=== PATIENT | female | born 1945 | race Caucasian/White ===

== ENCOUNTER 2019-09-16 16:39 | Observation (INO) | payer MEDICARE, OTHER, SELFPAY ==
[2019-09-16 16:50] VITALS: BMI 37.2
[2019-09-16 16:52] VITALS: BP 233/108; PULSE 82; RESP 18; TEMP 36.8; O2SAT 99
--- NOTE | 2019-09-16 17:09 | CTR_ITS ---
PROCEDURE INFORMATION: Exam: CT Head Without Contrast Exam date and time: 09/16/2019 5:20 PM Age: 74 years old Clinical indication: Dizziness and speech disturbance and weakness, extremity; Additional info: Symptoms of acute stroke TECHNIQUE: Imaging protocol: Computed tomography of the head without contrast. Total DLP: 923.39 mGy-cm Radiation optimization: All CT scans at this facility use at least one of these dose optimization techniques: automated exposure control; mA and/or kV adjustment per patient size (includes targeted exams where dose is matched to clinical indication); or iterative reconstruction. COMPARISON: CT head wo con* [id number] 03/26/2019 3:29 PM FINDINGS: Brain: There is mild cortical atrophy. There is no intracranial mass, hemorrhage or edema. Mild low-density changes are present in white matter regions in keeping with nonspecific small vessel chronic ischemic change. Midline shift: There is no shift of midline structures. Ventricles: Normal. No ventriculomegaly. Bones/joints: Unremarkable. No acute fracture. Sinuses: Visualized sinuses are unremarkable. No fluid levels. Mastoid air cells: Visualized mastoid air cells are well aerated. Soft tissues: Unremarkable. Vasculature: There are atherosclerotic changes in the cavernous carotid arteries on both sides. CT/CT head wo con* [id number] IMPRESSION: No acute intracranial finding. Radiation Dose CTDIVOL = (mGy): DLP = 923.39 (mGy-cm)
--- NOTE | 2019-09-16 17:09 | ECG_ITS ---
Measurements Intervals [place] Rate: 77 P: 74 MI: 205 QRS: -50 QRSD: 141 T: 56 QT: 400 QTc: 454 SINUS RHYTHM INTRAVENTRICULAR CONDUCTION DELAY [130+ ms QRS DURATION] POSSIBLE LATERAL MYOCARDIAL INFARCTION , PROBABLY OLD [30 ms Q WAVE IN I/ I/aVL/V5/V6] Compared to ECG 03/26/2019 15:11:41 Intraventricular conduction delay now present Myocardial infarct finding now present Left-axis deviation no longer present Left ventricular hypertrophy no longer present Electronically Signed On 09-17-2019 10:54:37 CDT by Breana Smiley M.D. [email or web address]
--- NOTE | 2019-09-16 17:12 | W.ED.NEUROSD ---
HPI - Neuro Symptoms/Deficit General: Chief Complaint: Neuro Symptoms/Deficit Stated Complaint: dizzy Time Seen by Provider: 09/16/19 16:53 Source: patient Mode of arrival: ambulatory Limitations: no limitations History of Present Illness: HPI Narrative: 75-year-old female patient who presents to the emergency department with complaints of dizziness, right hand tingling, and right side of her face numb. Her symptoms have been going on intermittently for 3 days. Each time it only lasts a few minutes at a time. She is currently asymptomatic. No weakness on one side of the body. No gait difficulty. No chest pain or shortness of breath. Onset (ago): day(s) (3) Location: other History of same: No Quality: numb Context: sudden onset Associated symptoms: Deny chest pain, cough, fevers/chills, headache(s), loss of appetite, nausea, seizures or short of breath Treatments Prior to Arrival: none Review of Systems General: Reports: 10 or more systems reviewed and unremarkable except in HPI and below Const: Denies: fever, chills or body aches Eyes: Denies: change in vision or blurry vision ENMT: Denies: throat pain, enlarged tonsils, painful swallowing, hoarseness, mouth pain or swelling of lips/tongue Card: Denies: chest pain Resp: Denies: shortness of breath, productive cough or non-productive cough GI: Denies: nausea : Denies: flank pain, difficulty urinating, painful urination, urinary frequency, urinary urgency or urinary hesitancy Musc: Denies: neck pain, back pain or extremity swelling Skin/Breast: Denies: rash, itching or redness Neuro: Denies: headache Endo: Denies: excessive urination, excessive thirst or tired all the time [facility] ED PFSH: Social History Smoking and tobacco status: never smoked Alcohol intake: never Current occupational status: retired NIH stroke score NIHSS: Level Of Consciousness - 1a: 0 Level Of Consciousness Questions - 1b: Both Correct Level Of Consciousness Commands - 1c: Both Correct Best Gaze - 2: Normal Visual Villar - 3: No Visual Loss Facial Palsy - 4: Normal Motor Arm Right - 5: No Drift Motor Arm Left - 5: No Drift Motor Leg Right - 6: No Drift Motor Leg Left - 6: No Drift Limb Ataxia - 7: Absent Sensory - 8: Normal Best Language - 9: No Aphasia Dysarthia - 10: Normal Extinction And Inattention - 11: 0 (0) Score: Total Score: 0 Physical Exam Const: COMMON NORMALS: no apparent distress, average body habitus, oriented x3, no limitations, healthy appearing, alert and well nourished HENMT: COMMON NORMALS: normocephalic, head/scalp atraumatic and moist oral mucous membranes HEAD & SCALP: normocephalic and atraumatic Eye: COMMON NORMALS: PERRL, EOMs intact bilaterally, conjunctivae normal and no scleral icterus CONJUNCTIVA: Yes conjunctivae normal PUPIL: Yes PERRL Neck/C-Spine: COMMON NORMALS: full ROM, supple, no meningeal signs, no JVD and no carotid bruits Chest: COMMONS NORMALS: inspection of chest normal and palpation of chest normal Resp: COMMON NORMALS: normal respiratory effort, no retractions, no use of accessory muscles, clear to auscultation bilaterally and percussion normal AUSCULTATION: clear to auscultation bilaterally PERCUSSION: percussion normal Cardio: COMMON NORMALS: no JVD, regular rate, regular rhythm, S1 normal heart sound, S2 normal heart sound, no gallops, no clicks, no murmurs, no rub and peripheral pulses 2+ throughout RATE: regular rate RHYTHM: regular rhythm HEART SOUNDS: S1 normal and S2 normal PERIPHERAL PULSES: pulses 2+ throughout GI: COMMON NORMALS: normal to inspection, nondistended, normoactive bowel sounds, soft to palpation, non-tender, no hepatosplenomegaly, no masses and no bruits PALPATION: Yes soft and Yes no hepatosplenomegaly : COMMON NORMALS: Yes no CVA tenderness BLADDER/KIDNEY EXAM: Yes no CVA tenderness Back/Pelvis: COMMON NORMALS: no CVA tenderness Extremity: COMMON NORMALS: normal to inspection, full ROM, normal capillary refill, no calf tenderness and no pedal edema Neuro: COMMON NORMALS: oriented x3 SENSORIUM/ORIENTATION: Yes alert MENINGEAL SIGNS: Yes no meningeal signs Skin: COMMON NORMALS: no rashes or lesions noted, no wounds, skin turgor normal, no jaundice, no petechiae and no mottling GENERAL SKIN EXAM: no rashes or lesions noted and turgor normal Course Consultations: Consultation #1: Dr. Gutierrez, hospitalist. He kindly accepted the patient to his service. Time: 20:00 Vital Signs: Vital signs: Vital Signs Temperature 98.3 F 09/16/19 16:52 Pulse Rate 70 09/16/19 21:03 Respiratory Rate 14 09/16/19 21:03 Blood Pressure 190/99 09/16/19 21:03 Pulse Oximetry 98 09/16/19 21:03 MDM - Neuro Symptoms/Deficit MDM Narrative: Medical decision making narrative: 74-year-old female patient who presents with symptoms of dizziness, right hand numbness as well as right facial numbness. NIH score is 0 though. Evaluation in the ED was unremarkable, however the patient felt uncomfortable being discharged home so she is admitted for stroke work-up. The patient had felt uncomfortable because she had had this in the past and she states when she was discharged home she had an episode of loss of consciousness as soon as she got home at that time. Medical Records: Attestation: I reviewed the patient's medical records. Lab Data: Labs: Lab Results 09/16/19 09/16/19 09/16/19 Range/Units 17:00 17:00 17:00 WBC 11.6 H (4.0-10.0) 10^3/ uL RBC 4.50 (4.1-5.3) 10^6/u L Hgb 9.6 L (11.5-15.3) g/dL Hct 32.8 L (37.0-47.0) % MCV 72.9 L (81-99) fL MCH 21.3 L (28.0-34.0) pg MCHC 29.3 L (30.0-36.0) g/dL RDW 17.8 H (12.1-15.1) % Plt Count 348 (130-400) 10^3/c mm MPV 8.7 (7.4-10.4) fL Neut % (Auto) 72.1 % Lymph % (Auto) 16.3 % Villalba % (Auto) 7.8 % Eos % (Auto) 2.8 % Baso % (Auto) 0.7 % Neut # (Auto) 8.4 H (1.8-7.7) 10^3/u L Lymph # (Auto) 1.9 (0.8-4.8) 10^3/u L Villalba # (Auto) 0.9 (0.2-0.9) 10^3/u L Eos # (Auto) 0.3 (0.0-0.8) 10^3/u L Baso # (Auto) 0.1 (0.0-0.1) 10^3/u L Nucleated RBC % (a uto) 0 % Nucleated RBCs # 0.0 /100WBC PT 13.20 (10.5-13.3) SECO NDS INR 0.98 (0.8-1.2) APTT 21.9 L (23.9-36.7) SECO NDS Sodium 134 L (136-145) mmol/L Potassium 4.3 (3.5-5.1) mmol/L Chloride 95 L (98-107) mmol/L Carbon Dioxide 24 (22-29) mmol/L Anion Gap 19.3 H (5-19) BUN 15 (8-23) mg/dL Creatinine 0.9 (0.5-0.9) mg/dL Glucose 158 H (65-115) mg/dL POC Glucose (70-110) mg/dL Calculated Osmolal ity 278 L (285-295) mOsm/k g Calcium 10.1 (8.5-10.5) mg/dL Total Bilirubin 0.2 (0.15-1.2) mg/dL AST 16 (0-32) U/L ALT 13 (0-33) U/L Alkaline Phosphata se 91 (35-105) IU/L Total Protein 7.6 (6.6-8.7) g/dL Albumin 4.3 (3.5-5.2) g/dL Globulin 3.3 (1.3-4.6) g/dL Urine Color (Yellow) Urine Appearance (CLEAR) Urine pH (5-7) Ur Specific Gravit y (1.005-1.030) Urine Protein (Negative) Urine Glucose (UA) (Normal) Urine Ketones (Negative) Urine Blood (Negative) Urine Nitrate (Negative) Urine Bilirubin (NEGATIVE) Urine Urobilinogen (Negative) mg/dL Ur Leukocyte Ivis ase (Negative) Urine Opiates Scre en (Negative) ng/mL Ur Barbiturates Sc reen (Negative) ng/mL Ur Phencyclidine S crn (Negative) ng/mL Ur Amphetamines Sc reen (Negative) ng/mL U Benzodiazepines Scrn (Negative) ng/mL Urine Cocaine Scre en (Negative) ng/mL U Marijuana (THC) Screen (Negative) ng/mL 09/16/19 09/16/19 09/16/19 Range/Units 17:39 19:58 19:58 WBC (4.0-10.0) 10^3/ uL RBC (4.1-5.3) 10^6/u L Hgb (11.5-15.3) g/dL Hct (37.0-47.0) % MCV (81-99) fL MCH (28.0-34.0) pg MCHC (30.0-36.0) g/dL RDW (12.1-15.1) % Plt Count (130-400) 10^3/c mm MPV (7.4-10.4) fL Neut % (Auto) % Lymph % (Auto) % Villalba % (Auto) % Eos % (Auto) % Baso % (Auto) % Neut # (Auto) (1.8-7.7) 10^3/u L Lymph # (Auto) (0.8-4.8) 10^3/u L Villalba # (Auto) (0.2-0.9) 10^3/u L Eos # (Auto) (0.0-0.8) 10^3/u L Baso # (Auto) (0.0-0.1) 10^3/u L Nucleated RBC % (a uto) % Nucleated RBCs # /100WBC PT (10.5-13.3) SECO NDS INR (0.8-1.2) APTT (23.9-36.7) SECO NDS Sodium (136-145) mmol/L Potassium (3.5-5.1) mmol/L Chloride (98-107) mmol/L Carbon Dioxide (22-29) mmol/L Anion Gap (5-19) BUN (8-23) mg/dL Creatinine (0.5-0.9) mg/dL Glucose (65-115) mg/dL POC Glucose 152 (70-110) mg/dL Calculated Osmolal ity (285-295) mOsm/k g Calcium (8.5-10.5) mg/dL Total Bilirubin (0.15-1.2) mg/dL AST (0-32) U/L ALT (0-33) U/L Alkaline Phosphata se (35-105) IU/L Total Protein (6.6-8.7) g/dL Albumin (3.5-5.2) g/dL Globulin (1.3-4.6) g/dL Urine Color Yellow (Yellow) Urine Appearance Clear (CLEAR) Urine pH 7 (5-7) Ur Specific Gravit y 1.005 (1.005-1.030) Urine Protein Neg (Negative) Urine Glucose (UA) Norm (Normal) Urine Ketones Negative (Negative) Urine Blood Neg (Negative) Urine Nitrate Negative (Negative) Urine Bilirubin Neg (NEGATIVE) Urine Urobilinogen Norm (Negative) mg/dL Ur Leukocyte Ivis ase Negative (Negative) Urine Opiates Scre en Negative (Negative) ng/mL Ur Barbiturates Sc reen Negative (Negative) ng/mL Ur Phencyclidine S crn Negative (Negative) ng/mL Ur Amphetamines Sc reen Negative (Negative) ng/mL U Benzodiazepines Scrn Negative (Negative) ng/mL Urine Cocaine Scre en Negative (Negative) ng/mL U Marijuana (THC) Screen Negative (Negative) ng/mL Imaging Data^: CT Head: Radiologist's impression: [place] [address] CT Scan Report Signed Patient: Desire Doll #: [id number] : 8Acct#:[id number] Age/Sex: 74 / FADM Date: 09/16/19 Loc: [facility]/Bed: Attending Dr: Ordering Provider/Ordering MD: Refugio Kidd MD, [facility] Date of Service: 09/16/19 Procedure(s): CT head wo con* 20006 Accession Number(s): [id number] Report Number: [id number] PROCEDURE INFORMATION: Exam: CT Head Without Contrast Exam date and time: 09/16/2019 5:20 PM Age: 74 years old Clinical indication: Dizziness and speech disturbance and weakness, extremity; Additional info: Symptoms of acute stroke TECHNIQUE: Imaging protocol: Computed tomography of the head without contrast. Total DLP: 923.39 mGy-cm Radiation optimization: All CT scans at this facility use at least one of these dose optimization techniques: automated exposure control; mA and/or kV adjustment per patient size (includes targeted exams where dose is matched to clinical indication); or iterative reconstruction. COMPARISON: CT head wo con* [id number] 03/26/2019 3:29 PM FINDINGS: Brain: There is mild cortical atrophy. There is no intracranial mass, hemorrhage or edema. Mild low-density changes are present in white matter regions in keeping with nonspecific small vessel chronic ischemic change. Midline shift: There is no shift of midline structures. Ventricles: Normal. No ventriculomegaly. Bones/joints: Unremarkable. No acute fracture. Sinuses: Visualized sinuses are unremarkable. No fluid levels. Mastoid air cells: Visualized mastoid air cells are well aerated. Soft tissues: Unremarkable. Vasculature: There are atherosclerotic changes in the cavernous carotid arteries on both sides. CT/CT head wo con* [id number] IMPRESSION: No acute intracranial finding. Radiation Dose CTDIVOL = (mGy): DLP = 923.39 (mGy-cm) Dictated By:Kevin Magana Signed By:Eneida Maganaigned Date/Time:09/16/191733 DD/ [address]: Radiologist's impression: [address] [address] [address] Scan Report Signed Patient: Desire Doll #: [id number] : [id number]#:[id number] Age/Sex: 74 / FADM Date: 09/16/19 Loc: [facility]/Bed: Attending Dr: Ordering Provider/Ordering MD: Refugio Kidd MD, [facility] Date of Service: 09/16/19 Procedure(s): CT angio headneck* [id number] Accession Number(s): [id number] Report Number: [id number] PROCEDURE INFORMATION: Exam: CT Angiography Head With Contrast Exam date and time: 09/16/2019 5:53 PM Age: 74 years old Clinical indication: Numbness and speech disturbance; Additional info: Stroke like symptoms. TECHNIQUE: Imaging protocol: Computed tomography angiography of the head with intravenous contrast. 3D rendering: MIP and/or 3D reconstructed images were created by the technologist. Total DLP: 2537.32 mGy-cm Radiation optimization: All CT scans at this facility use at least one of these dose optimization techniques: automated exposure control; mA and/or kV adjustment per patient size (includes targeted exams where dose is matched to clinical indication); or iterative reconstruction. Contrast material: OMNI 350; Contrast volume: 95 ml; Contrast route: IV; COMPARISON: CTA Head/Neck [id number] 03/26/2019 4:30 PM FINDINGS: Right internal carotid artery: There is atherosclerotic change in the cavernous portion of the right internal carotid artery with mild stenosis not significantly changed from previous. Right anterior cerebral artery: No occlusion or significant stenosis. No aneurysm. Right middle cerebral artery: No occlusion or significant stenosis. No aneurysm. Right posterior cerebral artery: No occlusion or significant stenosis. No aneurysm. Right vertebral artery: No occlusion or significant stenosis. No aneurysm. Left internal carotid artery: There is atherosclerotic change in the cavernous portion of the left internal carotid artery with mild stenosis not significantly changed from previous. Left anterior cerebral artery: No occlusion or significant stenosis. No aneurysm. Left middle cerebral artery: No occlusion or significant stenosis. No aneurysm. Left posterior cerebral artery: No occlusion or significant stenosis. No aneurysm. Left vertebral artery: No occlusion or significant stenosis. No aneurysm. Basilar artery: No occlusion or significant stenosis. No aneurysm. Other vasculature: There is some focal calcified plaque and moderate narrowing of the V4 vertebral artery not changed from the previous examination. IMPRESSION: Mild atherosclerotic changes as described. No acute intracranial finding PROCEDURE INFORMATION: Exam: CT Angiography Neck With Contrast Exam date and time: 09/16/2019 5:53 PM Age: 74 years old Clinical indication: Numbness and speech disturbance; Additional info: Stroke like symptoms. TECHNIQUE: Imaging protocol: Computed tomography angiography of the neck with intravenous contrast. 3D rendering: MIP and/or 3D reconstructed images were created by the technologist. Total DLP: 2537.32 mGy-cm Radiation optimization: All CT scans at this facility use at least one of these dose optimization techniques: automated exposure control; mA and/or kV adjustment per patient size (includes targeted exams where dose is matched to clinical indication); or iterative reconstruction. Contrast material: OMNI 350; Contrast volume: 95 ml; Contrast route: IV; COMPARISON: CTA Head/Neck [id number] 03/26/2019 4:30 PM FINDINGS: VASCULATURE: Right common carotid artery: There is some atherosclerotic plaque in the distal right common carotid artery not significantly changed from previous. Right internal carotid artery: There is atherosclerotic plaque in the proximal right internal carotid artery with approximately 35% stenosis as measured according to the NASCET criteria. Right external carotid artery: No occlusion or stenosis of the origin. Right vertebral artery: No stenosis. No dissection or occlusion. Left common carotid artery: No stenosis. No dissection or occlusion. Left internal carotid artery: There is mild atherosclerotic plaque in the proximal left internal carotid artery with no significant stenosis according to the NASCET criteria. Left external carotid artery: No occlusion or stenosis of the origin. Left vertebral artery: No stenosis. No dissection or occlusion. Subclavian arteries: There is an aberrant right subclavian artery. NECK: Bones/joints: There are mild degenerative changes in the cervical spine. Soft tissues: Normal. No significant soft tissue swelling. CT/CT angio headneck* [id number] IMPRESSION: 1. Mild carotid starter E stenosis not significantly changed from 03/26/2019. 2. No acute finding REFERENCES: NASCET CRITERIA. The degree of internal carotid artery stenosis is based on NASCET criteria. Normal is no stenosis. Mild is less than 50% stenosis. Moderate is 50-69% stenosis. Severe is 70% to 99% stenosis. Total occlusion is no detectable patent lumen. Radiation Dose CTDIVOL = (mGy): DLP = 2537.32~2537.32 (mGy-cm) Dictated By:Kevin Magana Signed By:Eneida Maganaigned Date/Time:09/16/19 1839 EKG Data^: EKG 1: Attestation: I personally reviewed and interpreted this EKG as follows: EKG interpretation date: 09/16/19 EKG interpretation time: 17:51 Prior EKG tracings: not available for review Interpretation: Normal sinus rhythm. Heart rate 77 bpm. Intraventricular conduction delay. No ST changes. Discharge Plan Discharge Patient Disposition: Placed in Observation Admit Provider: Vincent Gutierrez Clinical Impression: Transient cerebral ischemia Condition: Stable Interventions: ED Discharge Assessment Last Done: 09/16/19 21:01 Discharge Date/Time: 09/16/19 21:03 Coding Level of Care Code ED [facility] for [facility] Fwd Exam Comprehensive
[2019-09-16 17:34] LABS: Basophils # 0.1 10^3/uL (0.0-0.1); Basophils % 0.7 %; Eosinophils # 0.3 10^3/uL (0.0-0.8); Eosinophils % 2.8 %; Hematocrit 32.8 % (37.0-47.0); Hemoglobin 9.6 g/dL (11.5-15.3); Lymphocytes # 1.9 10^3/uL (0.8-4.8); Lymphocytes % 16.3 %; Mean Corpuscular HGB Conc 29.3 g/dL (30.0-36.0); Mean Corpuscular Hemoglobin 21.3 pg (28.0-34.0); Mean Corpuscular Volume 72.9 fL (81-99); Mean Platelet Volume 8.7 fL (7.4-10.4); Monocytes # 0.9 10^3/uL (0.2-0.9); Monocytes % 7.8 %; Neutrophils # 8.4 10^3/uL (1.8-7.7); Neutrophils % 72.1 %; Nucleated Red Blood Cells % 0 %; Platelet Count 348 10^3/cmm (130-400); Red Cell Distribution Width 17.8 % (12.1-15.1); White Blood Count 11.6 10^3/uL (4.0-10.0)
[2019-09-16 17:41] LABS: INR 0.98 (0.8-1.2); Partial Thromboplastin Time 21.9 SECONDS (23.9-36.7)
[2019-09-16 17:42] LABS: Alanine Aminotransferase 13 U/L (0-33); Albumin Level 4.3 g/dL (3.5-5.2); Alkaline Phosphatase 91 IU/L (35-105); Anion Gap 19.3 (5-19); Aspartate Amino Transferase 16 U/L (0-32); Blood Urea Nitrogen 15 mg/dL (8-23); Calcium 10.1 mg/dL (8.5-10.5); Carbon Dioxide 24 mmol/L (22-29); Chloride 95 mmol/L (98-107); Globulin 3.3 g/dL (1.3-4.6); Glucose 158 mg/dL (65-115); Osmolality Calculated 278 mOsm/kg (285-295); Potassium 4.3 mmol/L (3.5-5.1); Sodium 134 mmol/L (136-145); Total Bilirubin 0.2 mg/dL (0.15-1.2); Total Protein 7.6 g/dL (6.6-8.7)
[2019-09-16 17:48] VITALS: BP 228/109; PULSE 78; RESP 14; O2SAT 99
--- NOTE | 2019-09-16 17:49 | CTR_ITS ---
PROCEDURE INFORMATION: Exam: CT Angiography Head With Contrast Exam date and time: 09/16/2019 5:53 PM Age: 74 years old Clinical indication: Numbness and speech disturbance; Additional info: Stroke like symptoms. TECHNIQUE: Imaging protocol: Computed tomography angiography of the head with intravenous contrast. 3D rendering: MIP and/or 3D reconstructed images were created by the technologist. Total DLP: 2537.32 mGy-cm Radiation optimization: All CT scans at this facility use at least one of these dose optimization techniques: automated exposure control; mA and/or kV adjustment per patient size (includes targeted exams where dose is matched to clinical indication); or iterative reconstruction. Contrast material: OMNI 350; Contrast volume: 95 ml; Contrast route: IV; COMPARISON: CTA Head/Neck [id number] 03/26/2019 4:30 PM FINDINGS: Right internal carotid artery: There is atherosclerotic change in the cavernous portion of the right internal carotid artery with mild stenosis not significantly changed from previous. Right anterior cerebral artery: No occlusion or significant stenosis. No aneurysm. Right middle cerebral artery: No occlusion or significant stenosis. No aneurysm. Right posterior cerebral artery: No occlusion or significant stenosis. No aneurysm. Right vertebral artery: No occlusion or significant stenosis. No aneurysm. Left internal carotid artery: There is atherosclerotic change in the cavernous portion of the left internal carotid artery with mild stenosis not significantly changed from previous. Left anterior cerebral artery: No occlusion or significant stenosis. No aneurysm. Left middle cerebral artery: No occlusion or significant stenosis. No aneurysm. Left posterior cerebral artery: No occlusion or significant stenosis. No aneurysm. Left vertebral artery: No occlusion or significant stenosis. No aneurysm. Basilar artery: No occlusion or significant stenosis. No aneurysm. Other vasculature: There is some focal calcified plaque and moderate narrowing of the V4 vertebral artery not changed from the previous examination. IMPRESSION: Mild atherosclerotic changes as described. No acute intracranial finding PROCEDURE INFORMATION: Exam: CT Angiography Neck With Contrast Exam date and time: 09/16/2019 5:53 PM Age: 74 years old Clinical indication: Numbness and speech disturbance; Additional info: Stroke like symptoms. TECHNIQUE: Imaging protocol: Computed tomography angiography of the neck with intravenous contrast. 3D rendering: MIP and/or 3D reconstructed images were created by the technologist. Total DLP: 2537.32 mGy-cm Radiation optimization: All CT scans at this facility use at least one of these dose optimization techniques: automated exposure control; mA and/or kV adjustment per patient size (includes targeted exams where dose is matched to clinical indication); or iterative reconstruction. Contrast material: OMNI 350; Contrast volume: 95 ml; Contrast route: IV; COMPARISON: CTA Head/Neck [id number] 03/26/2019 4:30 PM FINDINGS: VASCULATURE: Right common carotid artery: There is some atherosclerotic plaque in the distal right common carotid artery not significantly changed from previous. Right internal carotid artery: There is atherosclerotic plaque in the proximal right internal carotid artery with approximately 35% stenosis as measured according to the NASCET criteria. Right external carotid artery: No occlusion or stenosis of the origin. Right vertebral artery: No stenosis. No dissection or occlusion. Left common carotid artery: No stenosis. No dissection or occlusion. Left internal carotid artery: There is mild atherosclerotic plaque in the proximal left internal carotid artery with no significant stenosis according to the NASCET criteria. Left external carotid artery: No occlusion or stenosis of the origin. Left vertebral artery: No stenosis. No dissection or occlusion. Subclavian arteries: There is an aberrant right subclavian artery. NECK: Bones/joints: There are mild degenerative changes in the cervical spine. Soft tissues: Normal. No significant soft tissue swelling. CT/CT angio headneck* [id number] IMPRESSION: 1. Mild carotid starter E stenosis not significantly changed from 03/26/2019. 2. No acute finding REFERENCES: NASCET CRITERIA. The degree of internal carotid artery stenosis is based on NASCET criteria. Normal is no stenosis. Mild is less than 50% stenosis. Moderate is 50-69% stenosis. Severe is 70% to 99% stenosis. Total occlusion is no detectable patent lumen. Radiation Dose CTDIVOL = (mGy): DLP = 2537.32~2537.32 (mGy-cm)
[2019-09-16 17:53] LABS: Glucose Point of Care 152 mg/dL (70-110)
[2019-09-16] MEDS: iohexol 350 mg/mL 100 mL Btl IV (18:00)
[2019-09-16 19:11] VITALS: BP 219/116; PULSE 81; RESP 16; O2SAT 98
[2019-09-16 20:07] VITALS: BP 218/108; PULSE 90; RESP 14; O2SAT 98
[2019-09-16 20:26] LABS: Add Urine Microscopic? NO
[2019-09-16 20:30] LABS: Specific Gravity, Urine 1.005 (1.005-1.030); Urine Appearance Clear (CLEAR); Urine Color Yellow (Yellow); pH Urine 7 (5-7)
[2019-09-16 20:31] LABS: Bilirubin Urine Neg (NEGATIVE); Blood Urine Neg (Negative); Glucose Urine UA Norm (Normal); Ketones Urine Negative (Negative); Leukocyte Esterase Urine Negative (Negative); Nitrate Urine Negative (Negative); Protein Urine Neg (Negative); Urobilinogen Urine Norm (Negative)
[2019-09-16 20:37] LABS: Amphetamines Screen Urine Negative (Negative); Barbiturates Screen Urine Negative (Negative); Benzodiazepines Screen Urine Negative (Negative); Cocaine Screen Urine Negative (Negative); Opiate Screen Urine Negative (Negative); PCP Screen Urine Negative (Negative); THC Screen Urine Negative (Negative)
[2019-09-16 21:03] VITALS: BP 190/99; PULSE 70; RESP 14; O2SAT 98
[2019-09-16 21:21] VITALS: BP 168/89; PULSE 88; RESP 20; TEMP 36.5; O2SAT 98
--- NOTE | 2019-09-16 22:07 | P.HP_ITS ---
Providers/Chief Complaint Admitting Physician: Vincent Gutierrez MD Primary Care Provider: Lars Day Chief Complaint: dizzy History of Present Illness Desire Doll is a 74 year old female with a past medical history of hypertension, cua-iovzzoj-clxfqxnyn type 2 diabetes mellitus, hypothyroidism, chronic joint pain, gout who presents to the emergency room due to complaints of right hand numbness, right facial numbness, slurring of her speech. Patient states that 3 days ago she developed right hand numbness, right facial numbness, slurring of her speech, lasted a few minutes, she also had a dark spot in her visual field, symptoms abated, she continued to have some sort of dark spot in her visual field. Patient did not seek medical attention, she thought her symptoms would go away. However again this morning more than 12 hours ago, she had recurrence of her symptoms, right hand numbness, right facial numbness, slurring of her speech, lasting a few minutes, she did not seek medical attention right away. She only sought medical attention when she started feel lightheaded, dizzy, uneasy on her feet. Patient states that back in March 2019, she had similar symptoms of right hand numbness, right facial numbness, slurring of her speech, lasting a few minutes, no visual defects, felt lightheaded, dizzy at that time, she actually presented [facility] had a CT of the head which was unremarkable, CT of her neck which was unremarkable she was sent home. However when patient arrived home, she had episodes of syncope, lightheadedness, dizziness, so her took her to [facility], she stated that she spent 4 days there, she is not sure what the work-up revealed, was not discharged on statin, was not discharged on aspirin, was not discharged on a blood thinner. States that since then she has been doing fine, except the episode that she had this morning and 3 days ago. She denies chest pain, does have intermittent episodes of palpitations, does have lightheadedness and dizziness at times, no history of CAD, no history of stenting, no history of heart failure, no history of lung disease, no history of smoking, does have a history of hypertension, states that at times her systolic blood pressures have been in the 200s, has a history of type 2 diabetes, [id number], blood sugars in the 140s Patient denies hematuria, denies bloody stools, denies black stools, had a colonoscopy roughly 5 years ago which was unremarkable, denies abdominal pain, denies a family history of cancers, does use meloxicam for joint pain During my examination, patient was sent up to the general medical floors, her NIH stroke scale was 0, she was asymptomatic currently, systolic blood pressure 160, diastolic 89, pulse 88, EKG showed normal sinus rhythm, incomplete RBBB, work-up showed hemoglobin 9.6, patient does complain of a persistent dark spot in her visual field, but has significantly reduced, only minimal now. Review of Systems Const: Denies: fever, chills, fatigue or malaise Eyes: Reports: change in vision; Denies: blurry vision ENMT: Denies: nasal congestion Resp: Denies: shortness of breath, productive cough, non-productive cough or wheezing GI: Denies: abdominal pain, nausea, vomiting, vomiting blood, diarrhea, constipation, blood in stool or black tarry stool : Denies: flank pain, painful urination or urinary frequency Musc: Denies: neck pain or back pain Skin/Breast: Denies: rash Neuro: Reports: numbness in extremities and slurred speech; Denies: headache, weakness in extremities, changes in sensation, lack of coordination, difficulty walking, frequent falls, dizziness or vertigo Psych: Denies: anxiety or depression Endo: Denies: excessive urination or excessive thirst Medications/Allergies Home Medications Medication Instructions Recorded Confirmed Last Taken Type hydrochlorothiazide 90 mg PO DAILY 09/16/19 09/16/19 09/16/19 History ibuprofen [Advil] 200 mg PO Q6H PRN 09/16/19 09/16/19 Unknown History Allergies Allergy/AdvReac Type Severity Reaction Status Date / Time penicillin G Allergy algy-rash Verified 09/16/19 16:57 Additional Medication Information Additional Medication Information: Enalapril 20 mg once daily Labetalol 300 mg twice daily Levothyroxine 150 mcg once daily Metformin thousand milligrams once daily Januvia 100 mg daily Allopurinol 100 mg daily Hydrochlorothiazide 12.5 mg once daily Meloxicam 15 mg daily as needed yes PFSH Acute PFSH: Medical History (Updated 09/16/19 @ 22:17 by Vincent Gutierrez MD) DM2 (diabetes mellitus, type 2) Hypertension Hypothyroidism Social History Smoking and tobacco status: never smoked Alcohol intake: never Current occupational status: retired Vitals/I&O/Wt Last Vital Signs Temp 97.7 F 09/16/19 21:21 Pulse 88 09/16/19 21:21 Resp 20 H 09/16/19 21:21 BP 168/89 09/16/19 21:21 Pulse Ox 98 09/16/19 21:21 Weight last 48 hrs Weight 98.43 kg Physical Exam Const: COMMON NORMALS: no apparent distress and oriented x3 GENERAL APPEARANCE: cooperative and comfortable HENMT: COMMON NORMALS: normocephalic HEAD & SCALP: normocephalic Eye: COMMON NORMALS: PERRL and EOMs intact bilaterally GENERAL EYE: normal appearance of both eyes PUPIL: Yes PERRL Neck/C-Spine: COMMON NORMALS: full ROM, no lymphadenopathy, no JVD and thyroid normal THYROID: thyroid normal Lymph: LYMPHATIC: no lymphadenopathy noted Resp: COMMON NORMALS: normal respiratory effort, no retractions, no use of accessory muscles and clear to auscultation bilaterally AUSCULTATION: clear to auscultation bilaterally Cardio: COMMON NORMALS: no JVD, regular rate, regular rhythm, S1 normal heart sound, S2 normal heart sound, no gallops, no clicks and no murmurs RATE: regular rate RHYTHM: regular rhythm HEART SOUNDS: S1 normal and S2 normal GI: COMMON NORMALS: normal to inspection, nondistended, normoactive bowel soun ds, soft to palpation, non-tender and no hepatosplenomegaly PALPATION: Yes soft and Yes no hepatosplenomegaly Extremity: COMMON NORMALS: normal to inspection, full ROM and no pedal edema Neuro: COMMON NORMALS: oriented x3, CN's II-XII intact bilaterally, moves all extremities and no focal motor deficits Psych: COMMON NORMALS: mental status grossly normal, thought process normal and cooperative THOUGHT PROCESS: normal thought process Data : 09/16/19 17:00 09/16/19 17:00 A&P Assessment and plan (1) Transient cerebral ischemia: -NIH stroke scale 0 -Symptoms are right hand numbness, right facial numbness, slurring of her speech -Blood persists is a dark spot in her visual field, seems like a left visual field, only very minimal now -Patient has episodes of palpitations, lightheadedness, dizziness -EKG normal sinus rhythm, no acute ST-T wave changes -Does report systolic blood pressures in the 200s at times -Given information above, I am concerned that patient has having embolic events possibly related to atrial fibrillation Plan: - Admit to general medical floors -Neurochecks -Telemetry monitoring -Aspirin, statin -IV hydration -Monitor hemoglobin as starting antiplatelet agent and Lovenox -Carotid ultrasound ordered, cardiac echocardiogram ordered -Patient's dark spot in her visual field sounds like retinal artery occlusion, which is resolving, sounds like related to embolic event, if patient's symptoms persist beyond 24 hours consider consulting ophthalmology for examination -On discharge consider discharging patient on an event monitor, given concerns for embolic strokes related to atrial fibrillation Full code, Lovenox for DVT prophylaxis Status: Acute Qualifiers: Transient cerebral ischemia type: unspecified Qualified Code(s): G45.9 - Transient cerebral ischemic attack, unspecified (2) Obesity, Class II, BMI 35-39.9: Status: Acute (3) Primary osteoarthritis of right knee: Status: Acute (4) Microcytic anemia: -Hemoglobin 9.6 Plan: -Iron studies -Hemoccult stool -CT of the abdomen -Possibly patient symptoms could be related to meloxicam use, gastritis, gastric ulcers -Had a colonoscopy 5 years ago which was relatively unremarkable -Denies hematuria, black stools, bloody stools, vaginal bleeding Status: Acute (5) Hypertension: Continue hydrochlorothiazide 12.5 mg once daily, labetalol 300 mg twice daily, enalapril 20 mg once daily Status: Acute (6) DM2 (diabetes mellitus, type 2): Low-dose sliding scale Status: Acute (7) Hypothyroidism: Continue levothyroxine 150 mcg once daily Check hemoglobin A1c Status: Acute (8) Gout: Continue allopurinol Status: Acute Attestations Medical Necessity Statement*: Patient requires hospitalization, outpatient with observation, for transient ischemic attack Coding Level of Care Code Acute Client Technical Professional for [facility] Diagnoses Transient cerebral ischemia G45.9 Transient cerebral ischemia type: unspecified Obesity, Class II, BMI 35-39.9 E66.9 Primary osteoarthritis of right knee M17.11 Microcytic anemia D50.9 Hypertension I10 DM2 (diabetes mellitus, type 2) E11.9 Hypothyroidism E03.9 Gout M10.9
[2019-09-16 22:24] LABS: Glucose Point of Care 133 mg/dL (70-110)
[2019-09-16] MEDS: atorvastatin 40 mg Tablet 80 MG PO (23:10)
[2019-09-16] MEDS: aspirin 81 mg EC Tablet PO (23:10)
[2019-09-16] MEDS: enoxaparin 40 mg/0.4 mL Syringe SUBCUT (23:11)
[2019-09-16 23:30] LABS: Thyroid Stimulating Hormone 0.45 uIU/mL (0.27-4.20)
[2019-09-17] VITALS: BP 172/79; PULSE 74; RESP 20; TEMP 37; O2SAT 98
[2019-09-17 01:21] LABS: Ferritin 10 ng/mL (15-150); Iron 20 ug/dL (37-145); Percent Saturation 4.8 % (20-50); Total Iron Binding Capacity 409 mcg/dl; Unsaturated Iron Binding 389 ug/dL (112-347)
[2019-09-17 04:00] VITALS: BP 147/72; PULSE 71; RESP 20; TEMP 36.4; O2SAT 97
[2019-09-17 05:42] LABS: Basophils # 0.1 10^3/uL (0.0-0.1); Eosinophils # 0.4 10^3/uL (0.0-0.8); Hematocrit 29.6 % (37.0-47.0); Hemoglobin 8.9 g/dL (11.5-15.3); Lymphocytes % 19.4 %; Mean Corpuscular HGB Conc 30.1 g/dL (30.0-36.0); Mean Corpuscular Hemoglobin 21.5 pg (28.0-34.0); Mean Corpuscular Volume 71.5 fL (81-99); Mean Platelet Volume 8.5 fL (7.4-10.4); Monocytes # 1.2 10^3/uL (0.2-0.9); Neutrophils # 6.7 10^3/uL (1.8-7.7); Neutrophils % 64.3 %; Nucleated Red Blood Cells % 0 %; Platelet Count 322 10^3/cmm (130-400); Red Blood Count 4.14 10^6/uL (4.1-5.3); Red Cell Distribution Width 17.8 % (12.1-15.1); White Blood Count 10.4 10^3/uL (4.0-10.0)
[2019-09-17 05:56] LABS: Alanine Aminotransferase 11 U/L (0-33); Albumin Level 3.8 g/dL (3.5-5.2); Alkaline Phosphatase 79 IU/L (35-105); Anion Gap 16.8 (5-19); Aspartate Amino Transferase 13 U/L (0-32); Blood Urea Nitrogen 14 mg/dL (8-23); Carbon Dioxide 25 mmol/L (22-29); Chloride 98 mmol/L (98-107); Chol HDL Ratio 3.16 mg/dL (0.0-4.40); Cholesterol 161 mg/dL (0-200); Glucose 131 mg/dL (65-115); HDL Cholesterol 51 mg/dL (60-100); LDL Cholesterol Calculated 95 mg/dL (50-129); LDL HDL Ratio 1.86 RATIO (0.00-3.22); Magnesium 1.7 mg/dL (1.7-2.3); Osmolality Calculated 280 mOsm/kg (285-295); Phosphorus 3.9 mg/dL (2.5-4.5); Potassium 3.8 mmol/L (3.5-5.1); Sodium 136 mmol/L (136-145); Total Bilirubin 0.3 mg/dL (0.15-1.2); Total Protein 6.8 g/dL (6.6-8.7); Triglycerides 73 mg/dL (0-150)
[2019-09-17 06:07] LABS: Estmated Average Glucose 143; Hemoglobin A1C 6.6 % (4.0-6.0)
[2019-09-17 06:19] LABS: INR 1.04 (0.8-1.2)
[2019-09-17 06:33] LABS: Glucose Point of Care 132 mg/dL (70-110)
[2019-09-17 06:55] VITALS: BP 163/84; PULSE 68; RESP 18; TEMP 36.7; O2SAT 98
[2019-09-17] MEDS: allopurinol 100 mg Tablet PO (09:00)
[2019-09-17] MEDS: hydroCHLOROthiazide 25 mg Tablet 12.5 MG PO (09:00)
[2019-09-17] MEDS: levothyroxine 150 mcg Tablet PO (09:00)
[2019-09-17] MEDS: aspirin 81 mg EC Tablet PO (09:01)
[2019-09-17] MEDS: labetalol 200 mg Tablet 300 MG PO (09:01)
[2019-09-17 10:57] LABS: Glucose Point of Care 165 mg/dL (70-110)
[2019-09-17 11:32] VITALS: BP 185/96; PULSE 71; RESP 18; TEMP 36.8; O2SAT 98
--- NOTE | 2019-09-17 12:00 | USCV_ITS ---
Desire Doll Age: 74 Gender: F : 1945 Exam Date: 09/17/2019 13:55 Ordering Phys: Dung Berman MD Technologist: Raul Hodgson [place] [facility] [place]: HTN Aortic Velocity @ SMA (cm/s) 107 RIGHT KIDNEY LEFT KIDNEY Velocity (cm/s) Velocity (cm/s) Sys/Benites Sys/Benites Resistive Index Resistive Index 192.0 / 47.4 0.75 Proximal Renal Artery 76.3 / 15.9 0.79 95.4 / 16.8 0.82 Mid Renal Artery 60.4 / 17.3 0.71 77.1 / 21.0 0.73 Distal Renal Artery 69.7 / 10.0 0.86 62.4 / 16.8 0.73 Hilar 58.4 / 13.9 0.76 44.9 / 7.0 0.84 Upper Pole / 52.6 / 21.0 0.60 Mid Pole 51.1 / 12.6 0.75 56.1 / 12.6 0.77 Lower Pole 49.8 / 13.9 0.72 1.80 Renal Aortic Ratio 0.72 Accleration Index (cm/sec2) 1882.0 Hilar 1126.0 0 0 1148.0 Upper Pole 0 1229.0 Mid Pole 889.00 0 882.00 Lower Pole 768.00 117.1 Kidney Length (mm) 110.6 FINDINGS Limited evaluation of arteries. There is no evidence of hemodynamically significant right renal artery stenosis. There is no evidence of hemodynamically significant left renal artery stenosis. CONCLUSIONS There is no sonographic evidence of hemodynamically significant renal artery stenosis bilaterally. Slightly limited due to technical difficulties. Dr. Xochitl Hearn DO (Electronically Signed) Final Date: 17 September 2019 15:57 S
--- NOTE | 2019-09-17 12:18 | PC.CHAP ---
Pastoral Care Encounter/Spiritual Assessment Type of Contact [] Declined returned case inspector visit [] Patient/Family/Request visit [] Outpatient visit [] Follow-up visit [] Physician referral [] Code/Alert [x] Routine visit [] Staff referral [] Actively dying [] Patient sleeping [] Family support [] [] Out of room [] Palliative care [] [x] Receiving care in room [] Pre-surgical visit [] Trauma [] Long length of stay [] ICU visit [] Other: Relational/Emotional Strength [] Patient feels connected with others/family/visitors/staff [] Distress [] Loneliness/isolation [] Abandonment Spirituality of Patient [] Person of Supriya [] Attends Caodaism of their Supriya [] Believes in Prayer [] Reads Bible or Yarsanism materials [] There are Spiritual issues to be addressed Manager Qa Interventions [] Prayer [] Active listening [] Non-anxious presence [] Spiritual/emotional support [] Crisis/trauma care [] Spiritual counseling [] Bereavement support [] Provided bereavement packet [] Provided Bible/devotional materials [] Provided toy/stuffed animal, coloring book to patient or family member [] Provided Communion [] Anointing/[place] [] Salvation [x] Completed spiritual assessment [] Other: Impact on Illness or Injury [] Angry [] Fearful [] Anxious [] Often cries [] Exhaustion [] Unable to work [] Unable to attend orthodoxy [] Unable to walk/stand [] Unable to read [] Unable to drive [] Unable to eat/drink [] Unable to sleep [] Unable to be with family [] Patient intubated [] Other: Summary Patient busy in discussion with doctor. Time spent with patient
--- NOTE | 2019-09-17 14:30 | PM.DCS ---
Discharge Providers Date of Admission: 09/16/19 20:18 Date of Discharge: September 17, 2019 Attending Provider at Admission: Vincent Gutierrez MD Attending Provider at Discharge: Dung Berman MD Primary Care Provider: Lars Day Diagnoses at Discharge Discharge Diagnosis (1) Transient cerebral ischemia: Status: Acute Qualifiers: Transient cerebral ischemia type: unspecified Qualified Code(s): G45.9 - Transient cerebral ischemic attack, unspecified (2) Obesity, Class II, BMI 35-39.9: Status: Acute (3) Primary osteoarthritis of right knee: Status: Acute (4) Microcytic anemia: Status: Acute (5) Hypertension: Status: Acute (6) DM2 (diabetes mellitus, type 2): Status: Acute (7) Hypothyroidism: Status: Acute (8) Gout: Status: Acute Reason for Visit Reason for Visit: Reason For Visit: dizzy Hospital Course Discharge Summary: Desire Doll is a 74 year old female with a past medical history of hypertension, gjr-ipkwbep-bnbuwkdpc type 2 diabetes mellitus, hypothyroidism, chronic joint pain, gout who presents to the emergency room on 09/16/2019 due to complaints of right hand numbness, right facial numbness, slurring of her speech. Patient states that 3 days ago she developed right hand numbness, right facial numbness, slurring of her speech, lasted a few minutes, she also had a dark spot in her visual field, symptoms abated, she continued to have some sort of dark spot in her visual field. Patient did not seek medical attention, she thought her symptoms would go away. However again this morning more than 12 hours ago, she had recurrence of her symptoms, right hand numbness, right facial numbness, slurring of her speech, lasting a few minutes, she did not seek medical attention right away. She only sought medical attention when she started feel lightheaded, dizzy, uneasy on her feet. She had similar symptoms back in March 2019, of right hand numbness, right facial numbness, slurring of her speech, lasting a few minutes, no visual defects, felt lightheaded, dizzy at that time, she actually presented [facility] had a CT of the head which was unremarkable, CT of her neck which was unremarkable she was sent home. However when patient arrived home, she had episodes of syncope, lightheadedness, dizziness, so her took her to [facility], she stated that she spent 4 days there, she is not sure what the work-up revealed, was not discharged on statin, was not discharged on aspirin, was not discharged on a blood thinner. States that since then she has been doing fine, except the episode that she had this morning and 3 days ago. She denies chest pain, does have intermittent episodes of palpitations, does have lightheadedness and dizziness at times, no history of CAD, no history of stenting, no history of heart failure, no history of lung disease, no history of smoking, does have a history of hypertension, states that at times her systolic blood pressures have been in the 200s, has a history of type 2 diabetes, [id number], blood sugars in the 140s. She was admitted to the medicine floor for monitoring neurological status. CT head was done which is unremarkable while CTA head and neck showed Mild carotid started restenosis which had not changed since March 262018 along with mild atherosclerotic changes. Echocardiogram was done which showed EF of 60%, LVH and grade 1 diastolic dysfunction. Patient during hospitalization continue to have high blood pressure for which amlodipine was added. Because patient was already on 3 antihypertensives and continue to high high blood pressure renal Doppler was done which did not show evidence of hemodynamically significant renal artery stenosis bilaterally. Patient worked well with physical therapy and her black spots in the left eye had gone away as well. On telemetry patient continued to have sinus rhythm. Because of recurrent episodes of similar symptoms in last 6 months patient was advised and was set up for Holter monitoring to rule out paroxysmal A. fib, [facility] SONIA profile was sent to rule out vasculitis, aspirin, Plavix and statin was added to her home medication list and she was asked to continue taking her medications. For high blood pressure as stated above amlodipine was added and she was asked to maintain a blood pressure chart advised to follow-up with her primary care physician in 2 weeks with a blood pressure chart. 4 black spots in her visual field she was advised to follow-up with Dr. Zapien from ophthalmology to rule out retinal detachment, CRAO. Patient is been discharged in hemodynamically stable condition and asked stable neurological functions. Physical Exam Const: COMMON NORMALS: no apparent distress and oriented x3 GENERAL APPEARANCE: cooperative and comfortable HENMT: COMMON NORMALS: normocephalic HEAD & SCALP: normocephalic Eye: COMMON NORMALS: PERRL and EOMs intact bilaterally GENERAL EYE: normal appearance of both eyes PUPIL: Yes PERRL Neck/C-Spine: COMMON NORMALS: full ROM, no lymphadenopathy, no JVD and thyroid normal THYROID: thyroid normal Lymph: LYMPHATIC: no lymphadenopathy noted Resp: COMMON NORMALS: normal respiratory effort, no retractions, no use of accessory muscles and clear to auscultation bilaterally AUSCULTATION: clear to auscultation bilaterally Cardio: COMMON NORMALS: no JVD, regular rate, regular rhythm, S1 normal heart sound, S2 normal heart sound, no gallops, no clicks and no murmurs RATE: regular rate RHYTHM: regular rhythm HEART SOUNDS: S1 normal and S2 normal GI: COMMON NORMALS: normal to inspection, nondistended, normoactive bowel sounds, soft to palpation, non-tender and no hepatosplenomegaly PALPATION: Yes soft and Yes no hepatosplenomegaly Extremity: COMMON NORMALS: normal to inspection, full ROM and no pedal edema Neuro: COMMON NORMALS: oriented x3, CN's II-XII intact bilaterally, moves all extremities and no focal motor deficits Psych: COMMON NORMALS: mental status grossly normal, thought process normal and cooperative THOUGHT PROCESS: normal thought process Discharge Data Data Completed and Pending: Completed Studies During Hospitalization Category Date Time Status CT abdomen pelvis wo con [id number] Rout ine Cat Scan 09/17/19 22:[address] angio headneck * [id number] Urge nt Cat Scan 09/16/19 17:[address] head wo con* [id number] Stat Cat Scan 09/16/19 17:09 Completed Pending at discharge Category Date Time Status Complete Blood Co unt w/Auto AM LABS Lab 09/18/19 04:00 Ordered Complete Blood Co unt w/Auto AM LABS Lab 09/19/19 04:00 Ordered Comprehensive Met abolic Panel AM LA BS Lab 09/18/19 04:00 Ordered Comprehensive Met abolic Panel AM LA BS Lab 09/19/19 04:00 Ordered Immunochemical Fe marielle OCB Routine Lab 09/16/19 22:47 Uncollected Magnesium AM LABS Lab 09/18/19 04:00 Ordered Magnesium AM LABS Lab 09/19/19 04:00 Ordered [facility] SONIA Profile R outine Lab 09/17/19 05:30 Received Phosphorus AM LAB S Lab 09/18/19 04:00 Ordered Phosphorus AM LAB S Lab 09/19/19 04:00 Ordered CV echo complete* [id number] Routine Ultrasound 09/17/19 22:47 Taken CV renal doppler [id number] Routine Ultrasound 09/17/19 12:00 Ordered Labs from last 24 hours 09/17/19 09/17/19 09/17/19 10:46 06:29 05:30 WBC RBC Hgb Hct MCV MCH MCHC RDW Plt Count MPV Neut % (Auto) Lymph % (Auto) Doddridge % (Auto) Eos % (Auto) Baso % (Auto) Reticulocyte % (Au to) Neut # (Auto) Lymph # (Auto) Doddridge # (Auto) Eos # (Auto) Baso # (Auto) Nucleated RBC % (a uto) Nucleated RBCs # PT INR APTT Sodium Potassium Chloride Carbon Dioxide Anion Gap BUN Creatinine Glucose POC Glucose 165 132 Estimat Average Gl ucose Hemoglobin A1c Calculated Osmolal ity Calcium Phosphorus Magnesium Iron TIBC % Saturation Unsat Iron Binding Ferritin Total Bilirubin AST ALT Alkaline Phosphata se Total Protein Albumin Globulin Triglycerides 73 Cholesterol 161 LDL Cholesterol, C alc 95 HDL Cholesterol 51 L LDL/HDL Ratio 1.86 Cholesterol/HDL Ra juanita 3.16 TSH Urine Color Urine Appearance Urine pH Ur Specific Gravit y Urine Protein Urine Glucose (UA) Urine Ketones Urine Blood Urine Nitrate Urine Bilirubin Urine Urobilinogen Ur Leukocyte Ivis ase Urine Opiates Scre en Ur Barbiturates Sc reen Ur Phencyclidine S crn Ur Amphetamines Sc reen U Benzodiazepines Scrn Urine Cocaine Scre en U Marijuana (THC) Screen 09/17/19 09/17/19 09/17/19 05:30 05:30 05:30 WBC RBC Hgb Hct MCV MCH MCHC RDW Plt Count MPV Neut % (Auto) Lymph % (Auto) Doddridge % (Auto) Eos % (Auto) Baso % (Auto) Reticulocyte % (Au to) Neut # (Auto) Lymph # (Auto) Doddridge # (Auto) Eos # (Auto) Baso # (Auto) Nucleated RBC % (a uto) Nucleated RBCs # PT 13.90 H INR 1.04 APTT Sodium 136 Potassium 3.8 Chloride 98 Carbon Dioxide 25 Anion Gap 16.8 BUN 14 Creatinine 0.8 Glucose 131 H POC Glucose Estimat Average Gl ucose 143 Hemoglobin A1c 6.6 H Calculated Osmolal ity 280 L Calcium 10.0 Phosphorus 3.9 Magnesium 1.7 Iron TIBC % Saturation Unsat Iron Binding Ferritin Total Bilirubin 0.3 AST 13 ALT 11 Alkaline Phosphata se 79 Total Protein 6.8 Albumin 3.8 Globulin 3.0 Triglycerides Cholesterol LDL Cholesterol, C alc HDL Cholesterol LDL/HDL Ratio Cholesterol/HDL Ra juanita TSH Urine Color Urine Appearance Urine pH Ur Specific Gravit y Urine Protein Urine Glucose (UA) Urine Ketones Urine Blood Urine Nitrate Urine Bilirubin Urine Urobilinogen Ur Leukocyte Ivis ase Urine Opiates Scre en Ur Barbiturates Sc reen Ur Phencyclidine S crn Ur Amphetamines Sc reen U Benzodiazepines Scrn Urine Cocaine Scre en U Marijuana (THC) Screen 09/17/19 09/16/19 09/16/19 05:30 22:17 19:58 WBC 10.4 H RBC 4.14 Hgb 8.9 L Hct 29.6 L MCV 71.5 L MCH 21.5 L MCHC 30.1 RDW 17.8 H Plt Count 322 MPV 8.5 Neut % (Auto) 64.3 Lymph % (Auto) 19.4 Doddridge % (Auto) 11.0 Eos % (Auto) 4.0 Baso % (Auto) 1.0 Reticulocyte % (Au to) Neut # (Auto) 6.7 Lymph # (Auto) 2.0 Doddridge # (Auto) 1.2 H Eos # (Auto) 0.4 Baso # (Auto) 0.1 Nucleated RBC % (a uto) 0 Nucleated RBCs # 0.0 PT INR APTT Sodium Potassium Chloride Carbon Dioxide Anion Gap BUN Creatinine Glucose POC Glucose 133 Estimat Average Gl ucose Hemoglobin A1c Calculated Osmolal ity Calcium Phosphorus Magnesium Iron TIBC % Saturation Unsat Iron Binding Ferritin Total Bilirubin AST ALT Alkaline Phosphata se Total Protein Albumin Globulin Triglycerides Cholesterol LDL Cholesterol, C alc HDL Cholesterol LDL/HDL Ratio Cholesterol/HDL Ra juanita TSH Urine Color Urine Appearance Urine pH Ur Specific Gravit y Urine Protein Urine Glucose (UA) Urine Ketones Urine Blood Urine Nitrate Urine Bilirubin Urine Urobilinogen Ur Leukocyte Ivis ase Urine Opiates Scre en Negative Ur Barbiturates Sc reen Negative Ur Phencyclidine S crn Negative Ur Amphetamines Sc reen Negative U Benzodiazepines Scrn Negative Urine Cocaine Scre en Negative U Marijuana (THC) Screen Negative 09/16/19 09/16/19 09/16/19 19:58 17:39 17:00 WBC RBC Hgb Hct MCV MCH MCHC RDW Plt Count MPV Neut % (Auto) Lymph % (Auto) Doddridge % (Auto) Eos % (Auto) Baso % (Auto) Reticulocyte % (Au to) Neut # (Auto) Lymph # (Auto) Doddridge # (Auto) Eos # (Auto) Baso # (Auto) Nucleated RBC % (a uto) Nucleated RBCs # PT INR APTT Sodium Potassium Chloride Carbon Dioxide Anion Gap BUN Creatinine Glucose POC Glucose 152 Estimat Average Gl ucose Hemoglobin A1c Calculated Osmolal ity Calcium Phosphorus Magnesium Iron 20 L TIBC 409 % Saturation 4.8 L Unsat Iron Binding 389 H Ferritin 10 L Total Bilirubin AST ALT Alkaline Phosphata se Total Protein Albumin Globulin Triglycerides Cholesterol LDL Cholesterol, C alc HDL Cholesterol LDL/HDL Ratio Cholesterol/HDL Ra juanita TSH Urine Color Yellow Urine Appearance Clear Urine pH 7 Ur Specific Gravit y 1.005 Urine Protein Neg Urine Glucose (UA) Norm Urine Ketones Negative Urine Blood Neg Urine Nitrate Negative Urine Bilirubin Neg Urine Urobilinogen Norm Ur Leukocyte Ivis ase Negative Urine Opiates Scre en Ur Barbiturates Sc reen Ur Phencyclidine S crn Ur Amphetamines Sc reen U Benzodiazepines Scrn Urine Cocaine Scre en U Marijuana (THC) Screen 09/16/19 09/16/19 09/16/19 17:00 17:00 17:00 WBC RBC Hgb Hct MCV MCH MCHC RDW Plt Count MPV Neut % (Auto) Lymph % (Auto) Doddridge % (Auto) Eos % (Auto) Baso % (Auto) Reticulocyte % (Au to) 0.8600 Neut # (Auto) Lymph # (Auto) Doddridge # (Auto) Eos # (Auto) Baso # (Auto) Nucleated RBC % (a uto) Nucleated RBCs # PT INR APTT Sodium 134 L Potassium 4.3 Chloride 95 L Carbon Dioxide 24 Anion Gap 19.3 H BUN 15 Creatinine 0.9 Glucose 158 H POC Glucose Estimat Average Gl ucose Hemoglobin A1c Calculated Osmolal ity 278 L Calcium 10.1 Phosphorus Magnesium Iron TIBC % Saturation Unsat Iron Binding Ferritin Total Bilirubin 0.2 AST 16 ALT 13 Alkaline Phosphata se 91 Total Protein 7.6 Albumin 4.3 Globulin 3.3 Triglycerides Cholesterol LDL Cholesterol, C alc HDL Cholesterol LDL/HDL Ratio Cholesterol/HDL Ra juanita TSH 0.45 Urine Color Urine Appearance Urine pH Ur Specific Gravit y Urine Protein Urine Glucose (UA) Urine Ketones Urine Blood Urine Nitrate Urine Bilirubin Urine Urobilinogen Ur Leukocyte Ivis ase Urine Opiates Scre en Ur Barbiturates Sc reen Ur Phencyclidine S crn Ur Amphetamines Sc reen U Benzodiazepines Scrn Urine Cocaine Scre en U Marijuana (THC) Screen 09/16/19 09/16/19 17:00 17:00 WBC 11.6 H RBC 4.50 Hgb 9.6 L Hct 32.8 L MCV 72.9 L MCH 21.3 L MCHC 29.3 L RDW 17.8 H Plt Count 348 MPV 8.7 Neut % (Auto) 72.1 Lymph % (Auto) 16.3 Doddridge % (Auto) 7.8 Eos % (Auto) 2.8 Baso % (Auto) 0.7 Reticulocyte % (Au to) Neut # (Auto) 8.4 H Lymph # (Auto) 1.9 Doddridge # (Auto) 0.9 Eos # (Auto) 0.3 Baso # (Auto) 0.1 Nucleated RBC % (a uto) 0 Nucleated RBCs # 0.0 PT 13.20 INR 0.98 APTT 21.9 L Sodium Potassium Chloride Carbon Dioxide Anion Gap BUN Creatinine Glucose POC Glucose Estimat Average Gl ucose Hemoglobin A1c Calculated Osmolal ity Calcium Phosphorus Magnesium Iron TIBC % Saturation Unsat Iron Binding Ferritin Total Bilirubin AST ALT Alkaline Phosphata se Total Protein Albumin Globulin Triglycerides Cholesterol LDL Cholesterol, C alc HDL Cholesterol LDL/HDL Ratio Cholesterol/HDL Ra juanita TSH Urine Color Urine Appearance Urine pH Ur Specific Gravit y Urine Protein Urine Glucose (UA) Urine Ketones Urine Blood Urine Nitrate Urine Bilirubin Urine Urobilinogen Ur Leukocyte Ivis ase Urine Opiates Scre en Ur Barbiturates Sc reen Ur Phencyclidine S crn Ur Amphetamines Sc reen U Benzodiazepines Scrn Urine Cocaine Scre en U Marijuana (THC) Screen Vitals: Last Vital Signs Temp 98.2 F 09/17/19 11:32 Pulse 71 09/17/19 11:32 Resp 18 09/17/19 11:32 BP 185/96 09/17/19 11:32 Pulse Ox 98 09/17/19 11:32 Discharge Plan Discharge Patient Disposition: Home, Self-Care Condition: Stable Prescriptions: New atorvastatin 40 mg Tablet 20 mg PO BEDTIME Qty: 30 RF: 0 clopidogrel 75 mg Tablet 75 mg PO DAILY Qty: 30 RF: 0 aspirin 81 mg Tablet,Delayed Release (Dr/Ec) 81 mg PO DAILY Qty: 30 RF: 0 amlodipine 10 mg Tablet 10 mg PO DAILY Qty: 30 RF: 0 ferrous sulfate 324 mg (65 mg iron) tablet,delayed release (DR/EC) 324 mg PO DAILY Qty: 30 RF: 0 Continued meloxicam 15 mg tablet 15 mg PO DAILY RF: 0 sitagliptin 100 mg tablet 100 mg PO DAILY RF: 0 metformin 1,000 mg tablet See Rx Instructions .ROUTE .COMPLEX RF: 0 levothyroxine 150 mcg tablet 150 mcg PO DAILY RF: 0 allopurinol 100 mg tablet 100 ea PO DAILY RF: 0 labetalol 300 mg tablet 300 mg PO BID RF: 0 enalapril maleate 20 mg tablet 20 mg PO BID RF: 0 hydrochlorothiazide 12.5 mg capsule 90 mg PO DAILY RF: 0 Discontinued ibuprofen [Advil] 200 mg Tablet 200 mg PO Q6H PRN (Reason: Pain) RF: 0 Discharge Orders: Discharge Order (Routine); Ordered 09/17/19 Ordered By: Dung Berman Other Ambulatory Orders: Holter Monitor (Routine) Timeframe: 1 Week Facility: [facility] - Location: Cardiac Diagnostic Laboratory Ordered By: Dung Berman Referrals: Louisa Best MD [Physician] - 2 weeks (PLEASE CALL FOR APPOINTMENT WITH DR BEST) Lars Day [Primary Care Provider] - 4-7 days (please call for appointment for hospital follow up) Ho Zapien MD [Physician] - 09/23/19 9:00 am Jim Julio FNP [Nurse Practitioner] - 09/25/19 9:30 am Discharge Diet: Cardiac, Diabetic and Low Salt Discharge Activity: Resume usual activity Patient Instructions: Aspirin (By mouth), Amlodipine (By mouth), Atorvastatin (By mouth), Clopidogrel (By mouth), Ascorbic Acid/Cyanocobalamin/Ferrous Fumarate (By mouth), Transient Ischemic Attack (DC) Activity Restrictions/Additional Instructions: f/u with neurology as discussed in 2 weeks and pad extraction tender in 10 days ASA 81 mg daily ,plavix 75 mg daily for TIA along with statin 20 mg daily Amlodipine 10 mg daily for BP Please maintain BP diary for your PCP APPOINTMENT WITH [facility] [phone] ON MondaySEPTEMBER 24 AT 9:30 Discharge Date/Time: 09/17/19 15:56 Discharge Attestations Time Spent in Discharge Care*: greater than 30 min Specific Discharge Activities: Specific discharge activities: educating patient, discussing with pcp/other providers, discussing with case operator/social workers/dc planners, documenting/other paperwork and evaluating patient/reviewing data Status at Discharge: Cognitive status at discharge: cognitively intact, Behavioral status at discharge: cooperative, Functional status at discharge: independent ambulation Overall status at discharge: patient is back to baseline Quality Metrics Clinical Quality Measures During this hospital stay, did patient experience: Stroke Contraindication to Antithrombotic: Antithrombotic prescribed Contraindication to Anticoagulation: Medical contraindication Contraindication to Statin: Statin prescribed Coding Level of Care Code Acute Gis Instructor for Eric Diazd Diagnoses Transient cerebral ischemia G45.9 Transient cerebral ischemia type: unspecified Obesity, Class II, BMI 35-39.9 E66.9 Primary osteoarthritis of right knee M17.11 Microcytic anemia D50.9 Hypertension I10 DM2 (diabetes mellitus, type 2) E11.9 Hypothyroidism E03.9 Gout M10.9
[2019-09-17 15:34] VITALS: BP 135/76; PULSE 73; RESP 18; TEMP 36.6; O2SAT 90
--- NOTE | 2019-09-17 15:42 | PC.NURSE ---
DISCHARGE DISCHARGE INSTRUCTIONS GIVEN PER THIS NURSE - PT VERBALIZES UNDERSTANDING - SCRIPTS ESCRIBED TO ALISIA FERNÁNDEZ
--- NOTE | 2019-09-17 22:47 | CT_ITS ---
WS: [id number] CT ABDOMEN AND PELVIS NONCONTRAST HISTORY: anemia TECHNIQUE: Imaging performed through the abdomen and pelvis. Coronal and sagittal reformats are submi tted. All CT scans at [facility] use at least one of these dose optimization techniques: automated exposure control; mA and/or kV adjustment per patient size (includes targeted exams where d ose is matched to clinical indication); or iterative reconstruction. DLP: 1759.04 mGy.cm COMPARISON: None available. Lower thorax: Small pericardial effusion. Greatest diameter of the fusion is 1 cm along the posterior heart. Mild pleural thickening at the lung bases. Liver: Normal, no mass or intrahepatic dilatation. Gallbladder: Unremarkable. Pancreas: Moderate fatty replacement. Otherwise negative. Spleen: Normal. Adrenal glands: Normal. Right kidney: Mild atrophy of the kidney. There is no obstruction. There is high density contrast in the renal pelvis and ureter from the prior CT angiogram. Left kidney: Minimally complex cyst measures 3.1 cm in diameter. High density contrast in the LEFT re nal pelvis and ureter with no obstruction. Contrast is from the recent CT angiogram. Abdominal aorta and IVC are unremarkable. No free fluid, intraperitoneal air or significant lymphadenopathy. GI tract: Mild mucosal thickening in the ascending colon. No inflammation or obstruction. The appendi x is not definitely visualized. Only a small portion of the appendix is identified but there is no ev idence for appendicitis. Descending and sigmoid diverticulosis without acute diverticulitis. Abdominal wall: Intact. Pelvis: Atrophic uterus and ovaries as expected. No free fluid. High density contrast in the urinary bladder. Osseous structures: Diffuse osteopenia. No osteoblastic or osteolytic bone disease. CT/CT abdomen pelvis wo con [id number] IMPRESSION: 1. Small circumferential pericardial effusion. 2. No adenopathy. 3. Minimally complex LEFT renal cyst measures 3.1 cm. 4. There is mild mucosal thickening and edema in the ascending colon. May be d ue to mild colitis. No abscess or acute inflammation. 5. Distal colon diverticulosis without acute diverticulitis.
--- NOTE | 2019-09-17 22:47 | USCV_ITS ---
Desire Doll Age: 74 Gender: F : 1945 Exam Date: 09/17/2019 09:42 Ordering Phys: Vincent Gutierrez MD Technologist: Raul Hodgson Exam Location: [facility] Indication: TIA BP: 147 / 72 HR: 73 Rhythm: Sinus Technical Quality: MEASUREMENTS (Male / Female) Normal Values 2D ECHO LV Diastolic Diameter PLAX 5.0 cm 4.2 - 5.9 / 3.9 - 5.3 cm LV Systolic Diameter PLAX 2.7 cm IVS Diastolic Thickness 1.1 cm 0.6 - 1.0 / 0.6 - 0.9 cm IVS Systolic Thickness 1.9 cm LVPW Diastolic Thickness 1.8 cm 0.6 - 1.0 / 0.6 - 0.9 cm LVPW Systolic Thickness 1.7 cm LVOT Diameter 2.0 cm LV Ejection Fraction 2D Teich 76.2 % LV Ejection Fraction MOD 2C 62.0 % LV Ejection Fraction 2C AL 61.5 % LA Diameter 3.8 cm LA Width 3.5 cm LA Height 4.4 cm RA Width 3.6 cm RA Height 4.9 cm M-MODE LV Diastolic Diameter MM 4.7 cm 4.2 - 5.9 / 3.9 - 5.3 cm LV Systolic Diameter MM 3.2 cm LV Ejection Fraction MM Teich 61.3 % IVS Diastolic Thickness MM 1.4 cm 0.6 - 1.0 / 0.6 - 0.9 cm IVS Systolic Thickness MM 2.0 cm LVPW Diastolic Thickness MM 1.4 cm 0.6 - 1.0 / 0.6 - 0.9 cm LVPW Systolic Thickness MM 2.1 cm RV Diastolic Diameter MM 2.7 cm Aortic Annulus Diameter 3.0 cm LA Ao Ratio MM 1.3 MV E Point Septal Separation 1.7 cm DOPPLER MV Area PHT 5.1 cm squared Mitral E to A Ratio 0.8 MV E' Velocity 7.0 cm/s Mitral E to MV E' Ratio 12.5 Mitral E to LV E' Lateral Ratio 10.8 Mitral E to LV E' Septal Ratio 15.1 TR Peak Velocity 123.0 cm/s TR Peak Gradient 6.0 mmHg TV Peak E Velocity 77.0 cm/s Right Atrial Pressure 3.0 mmHg Pulmonary Artery Systolic Pressu 9.1 mmHg FINDINGS Left Ventricle Normal left ventricular cavity size. Normal left ventricular systolic function. No regional wall motion abnormalities. Left ventricular ejection fraction is estimated at 60 %. Grade I/IV diastolic dysfunction (abnormal relaxation filling pattern), normal to mildly elevated filling pressures. Right Ventricle The right ventricle is normal in size and function. Right Atrium The right atrium is normal in size. Left Atrium The left atrium is normal in size. Mitral Valve Structurally normal mitral valve without significant stenosis or prolapse. There is no mitral regurgitation. Aortic Valve Structurally normal aortic valve without significant sclerosis or stenosis. There is no aortic regurgitation. Tricuspid Valve Structurally normal tricuspid valve without significant stenosis or regurgitation. Pulmonary artery systolic pressure is normal. Pulmonic Valve Structurally normal pulmonic valve without significant stenosis. There is no pulmonic regurgitation. Pericardium Normal pericardium without effusion. Aorta Normal ascending aorta dimension. CONCLUSIONS 1-Normal left ventricular cavity size. Normal left ventricular systolic function. No regional wall motion abnormalities. Left ventricular ejection fraction is estimated at 60 %. Grade I/IV diastolic dysfunction (abnormal relaxation filling pattern), normal to mildly elevated filling pressures. 2-No significant valve abnormalities. 3-There is no pericardial effusion. 4-Pulmonary artery systolic pressure is within normal limits. 5-Right atrial pressure is around 5 mm of mercury. 6-There are no prior echocardiogram studies to compare. Alondra Pate MD (Electronically Signed) Final Date: 17 September 2019 15:55 S
[2019-09-18 12:50] LABS: Anti-Double Strand DNA AB 2 IU/mL; Jo-1 Antibody <1.0 NEG AI (<1.0 NEG); SM/RNP Antibodies <1.0 NEG AI (<1.0 NEG); SS-B/LA IGG <1.0 NEG AI (<1.0 NEG); Scleroderma Ab(Scl-70) Ab <1.0 NEG AI (<1.0 NEG); Ss-A/Ro Igg <1.0 NEG AI (<1.0 NEG)
== END 2019-09-17 15:56 | disposition home or self-care (01) ==
LOC: ER 18:40 → MEDSURG 21:11
PROVIDERS: Admitting Provider Family Medicine; Emergency Provider Family Medicine; Family Provider Family Medicine; PCP Family Medicine; Visit Provider Student in an Organized Health Care Education/Training Program
DX: G45.9 Transient cerebral ischemic attack, unspecified (principal); R29.700 NIHSS score 0; E66.9 Obesity, unspecified; Z68.37 Body mass index [BMI] 37.0-37.9, adult; M17.11 Unilateral primary osteoarthritis, right knee; D50.9 Iron deficiency anemia, unspecified; I10 Essential (primary) hypertension; E11.9 Type 2 diabetes mellitus without complications; E03.9 Hypothyroidism, unspecified; M10.9 Gout, unspecified
CPT/HCPCS: 12345; 36415; 36416; 70450; 70496; 70498; 74176; 80053; 80061; 80306; 81003; 82728; 82962; 83036; 83540; 83550; 83735; 84100; 84443; 85025; 85045; 85610; 85730; 86225; 86235; 93005; 93306; 93975; 96372; 97161; 97165; 97530; 99283; 99285; G0378; J1650; J1756; J1815; Q9967

== ENCOUNTER 2021-08-08 15:02 | Emergency (ER) | payer MEDICARE, OTHER, SELFPAY ==
[2021-08-08 15:06] VITALS: BP 163/70; PULSE 64; RESP 18; TEMP 36.7; O2SAT 99; BMI 37.1
--- NOTE | 2021-08-08 15:18 | USR_ITS ---
PROCEDURE INFORMATION: Exam: US Duplex Right Lower Extremity Veins, Limited Exam date and time: 08/08/2021 3:18 PM Age: 76 years old Clinical indication: Leg, upper; Right; Patient HX: No trauma to RT leg. Pain began in RT. Hip TECHNIQUE: Imaging protocol: Real-time Duplex ultrasound of the Right Lower Extremity with 2-D lombardo scale, color Doppler flow and spectral waveform analysis with image documentation. Limited exam was focused on the right lower extremity veins. COMPARISON: CT abdomen pelvis con [id number] 09/17/2019 10:30 AM FINDINGS: Right deep veins: Unremarkable. The common femoral, femoral, proximal profunda femoral and popliteal veins are patent without thrombus. Normal Doppler waveforms. Normal compressibility and/or augmentation response. Right superficial veins: Unremarkable. Saphenofemoral junction is patent without thrombus. Soft tissues: Unremarkable. US/[place] [id number] IMPRESSION: No evidence of deep vein thrombosis.
[2021-08-08 15:27] VITALS: BP 167/81; PULSE 70; RESP 20; O2SAT 98
[2021-08-08 15:35] VITALS: BP 166/83; PULSE 71; RESP 18; O2SAT 99
[2021-08-08 15:38] VITALS: RESP 18; O2SAT 100
[2021-08-08] MEDS: morphine 4 mg/mL SDV 1 mL IVP (15:38)
--- NOTE | 2021-08-08 15:39 | W.ED.EXTPRO ---
HPI - Extremity Problem General: Chief complaint: Extremity Problem,Nontraumatic Stated complaint: R leg pain an swelling Time Seen by Provider: 08/08/21 15:14 Source: patient Mode of arrival: ambulatory Limitations: no limitations History of Present Illness: 76-year-old female states she has been having right groin pain along with right upper leg pain on the right. States is been going on for 5 to 7 days she been also having swelling to that leg. She states it is worse with range of motion improved with rest states her pain currently is a 3 out of 10 sharp in nature. Denies any shortness of breath denies any fever no history of blood clots no recent injuries that she knows of. Associated symptoms: Deny chest pain, fever(s) or rash Review of Systems Const: Denies: fever(s), chills, body aches or change in appetite Eyes: Denies: blurry vision or eye discomfort ENMT: Denies: throat pain or dental pain Card: Denies: chest pain Resp: Denies: dyspnea GI: Denies: abdominal pain, nausea, vomiting or diarrhea : Denies: dysuria Musc: Reports: extremity pain and extremity swelling Skin/Breast: Denies: rash Neuro: Denies: headache(s) Psych: Denies: depression Jos/Lymph: Denies: easy bruising All/Imm: Denies: urticaria PFSH ED PFSH: Medical History (Updated 08/08/21 @ 16:48 by Gurdeep Velazquez MD) DM2 (diabetes mellitus, type 2) Hypertension Hypothyroidism Family History Mother Diabetes Father Diabetes Denies family history of CAD (coronary artery disease) Clotting disorder Dementia Hyperlipidemia Psychiatric illness Chronic kidney disease (CKD) Suicide Anesthesia complication Bleeding disorder Family history of premature coronary artery disease Lung disease Cancer Hypertension Stroke Social History Smoking and tobacco status: never smoked Alcohol intake: never Current occupational status: retired Physical Exam Const: COMMON NORMALS: no acute distress, patient oriented x3 and healthy appearing HENMT: COMMON NORMALS: normocephalic and atraumatic HEAD & SCALP: normocephalic and atraumatic Eye: COMMON NORMALS: Equal, round and reactive pupils present and EOMs intact bilaterally PUPIL: Yes Equal, round and reactive pupils present Neck/C-Spine: COMMON NORMALS: full ROM and supple Chest: COMMONS NORMALS: normal inspection of the chest and normal palpation of entire chest wall Resp: COMMON NORMALS: normal respiratory effort, No retractions, No use of accessory muscles and clear to auscultation bilaterally AUSCULTATION: clear to auscultation bilaterally Cardio: COMMON NORMALS: regular rate, regular rhythm and No murmurs present (Cardio) RATE: regular rate RHYTHM: regular rhythm GI: COMMON NORMALS: Normal to inspection, nondistended, normoactive bowel sounds present, Soft to palpation, non-tender and no masses PALPATION: Yes Soft to palpation Extremity: NARRATIVE EXTREMITY EXAM: Some swelling to right lower leg from mid thigh down tender to right groin and right upper thigh has pain with range of motion of her right leg no tenderness in her hip Neuro: COMMON NORMALS: patient oriented x3, moves all extremities and no focal motor deficits Psych: COMMON NORMALS: mental status grossly normal, Normal thought process present and cooperative THOUGHT PROCESS: Normal thought process present Skin: COMMON NORMALS: no rashes or lesions noted and no wounds GENERAL SKIN EXAM: no rashes or lesions noted Course Vital Signs: Vital signs: Vital Signs Temperature 98.1 F 08/08/21 15:06 Pulse Rate 81 08/08/21 16:08 Respiratory Rate 96 H 08/08/21 16:08 Blood Pressure 155/81 08/08/21 16:08 Pulse Oximetry 96 08/08/21 16:08 MDM - Extremity (Nontraumatic) Medical Decision Making Patient presents here with right groin pain with right lower leg swelling ultrasound here showed no signs of DVT no signs of septic joint no fever blood work here is all normal her abdominal exam is benign she has no tenderness her abdomen no signs of AAA. We will place her on Naprosyn and hydrocodone she is to follow-up with PCP and return if worsening. Lab Data : 08/08/21 15:30 08/08/21 15:30 Radiology Impressions Hip/Pelvis X-Ray 08/08/21 15:45 IMPRESSION: There are degenerative changes across the right hip joint. No visualized acute fracture. Laboratory Results WBC 11.1 10^3/uL (4.0-10.0) H 08/08/21 15:30 RBC 4.11 10^6/uL (4.1-5.3) 08/08/21 15:30 Hgb 10.3 g/dL (11.5-15.3) L 08/08/21 15:30 Hct 32.2 % (37.0-47.0) L 08/08/21 15:30 MCV 78.3 fl (81-99) L 08/08/21 15: MCH 25.1 pg (28.0-34.0) L 08/08/21 15: MCHC 32.0 g/dL (30.0-36.0) 08/08/21 15: RDW 16.2 % (12.1-15.1) H 08/08/21 15: Plt Count 328 10^3/cmm (130-400) 08/08/21 15: MPV 8.6 fL (7.4-10.4) 08/08/21 15:30 Neut % (Auto) 74.0 % 08/08/21 15: Lymph % (Auto) 13.3 % 08/08/21 15:30 [place] % (Auto) 9.7 % 08/08/21 15:30 Eos % (Auto) 2.0 % 08/08/21 15:30 Baso % (Auto) 0.5 % 08/08/21 15: Neut # (Auto) 8.19 10^3/uL (1.8-7.7) H 08/08/21 15:30 Lymph # (Auto) 1.5 10^3/uL (0.8-4.8) 08/08/21 15:30 [place] # (Auto) 1.1 10^3/uL (0.2-0.9) H 08/08/21 15:30 Eos # (Auto) 0.2 10^3/uL (0.0-0.8) 08/08/21 15:30 Baso # (Auto) 0.1 10^3/uL (0.0-0.1) 08/08/21 15:30 Nucleated RBC % (auto) 0 % 08/08/21 15: Nucleated RBCs # 0.0 /100WBC 08/08/21 15: Sodium 129 mmol/L (136-145) L 08/08/21 15: Potassium 4.0 mmol/L (3.5-5.1) 08/08/21 15:30 Chloride 93 mmol/L (98-107) L 08/08/21 15:30 Carbon Dioxide 23 mmol/L (22-29) 08/08/21 15:30 Anion Gap 17.0 (5-19) 08/08/21 15:30 BUN 20 mg/dL (8-23) 08/08/21 15:30 Creatinine 0.7 mg/dL (0.5-0.9) 08/08/21 15:30 GFR Calculation Not Reportable 08/08/21 15:30 Glucose 144 mg/dL (65-115) H 08/08/21 15:30 Calculated Osmolality 273 mOsm/kg (285-295) L 08/08/21 15:30 Calcium 8.9 mg/dL (8.5-10.5) 08/08/21 15:30 Total Bilirubin 0.3 mg/dL (0.15-1.2) 08/08/21 15:30 AST 16 U/L (0-32) 08/08/21 15:30 ALT 14 U/L (0-33) 08/08/21 15:30 Alkaline Phosphatase 104 IU/L (35-105) 08/08/21 15:30 Total Protein 7.3 g/dL (6.6-8.7) 08/08/21 15:30 Albumin 4.3 g/dL (3.5-5.2) 08/08/21 15:30 Globulin 3.0 g/dL (1.3-4.6) 08/08/21 15:30 Discharge Plan Discharge Patient Disposition: Home Clinical Impression: Lower extremity edema, Right groin pain Condition: Stable Prescriptions: New hydrocodone-acetaminophen 5-325 mg tablet 1 tab PO Q6H PRN (Reason: pain) Qty: 14 0RF Naprosyn 500 mg tablet 500 mg PO BID PRN (Reason: pain) Qty: 20 0RF No Action meloxicam 15 mg tablet 15 mg PO DAILY 0RF sitagliptin 100 mg tablet 100 mg PO DAILY 0RF metformin 1,000 mg tablet See Rx Instructions .ROUTE .COMPLEX 0RF Rx Instructions: 1,000 mg orally TAKE DIRECTED. levothyroxine 150 mcg tablet 150 mcg PO DAILY 0RF allopurinol 100 mg tablet 100 ea PO DAILY 0RF labetalol 300 mg tablet 300 mg PO BID 0RF enalapril maleate 20 mg tablet 20 mg PO BID 0RF hydrochlorothiazide 12.5 mg capsule 90 mg PO DAILY 0RF atorvastatin 40 mg Tablet 20 mg PO BEDTIME Qty: 30 0RF clopidogrel 75 mg Tablet 75 mg PO DAILY Qty: 30 0RF aspirin 81 mg Tablet,Delayed Release (Dr/Ec) 81 mg PO DAILY Qty: 30 0RF amlodipine 10 mg Tablet 10 mg PO DAILY Qty: 30 0RF ferrous sulfate 324 mg (65 mg iron) tablet,delayed release (DR/EC) 324 mg PO DAILY Qty: 30 0RF Discharge Orders: Discharge ED (Routine); Ordered 08/08/21 Ordered By: Gurdeep Velazquez Referrals: Lars Day [Primary Care Provider] - 1-3 days Discharge Diet: Advance as tolerated Discharge Activity: Resume usual activity Patient Instructions: Leg Edema (ED), Opioid Safety Coding Level of Care Code ED Evp General Counsel for Jhonatang Fwd Exam Comprehensive
[2021-08-08] MEDS: ondansetron 2 mg/ML SDV 2 mL 4 MG IVP (15:40)
--- NOTE | 2021-08-08 15:45 | XRR_ITS ---
PROCEDURE INFORMATION: Exam: XR Right Hip Exam date and time: 08/08/2021 3:45 PM Age: 76 years old Clinical indication: Hip pain; Right hip TECHNIQUE: Imaging protocol: XR Right hip. Views: 1 view hip with pelvis when performed. COMPARISON: CT abdomen pelvis wo con [id number] 09/17/2019 10:30 AM FINDINGS: Bones/joints: Eajl-me-ujvwiwal narrowing of the hip joint space. There are small marginal osteophytes across the right hip. There are moderate degenerative changes across the pubic symphysis. Soft tissues: Unremarkable. XR/XR hip RT 2-3V wo/w pel* [id number] IMPRESSION: There are degenerative changes across the right hip joint. No visualized acute fracture.
[2021-08-08 15:49] LABS: Basophils # 0.1 10^3/uL (0.0-0.1); Basophils % 0.5 %; Eosinophils # 0.2 10^3/uL (0.0-0.8); Hematocrit 32.2 % (37.0-47.0); Hemoglobin 10.3 g/dL (11.5-15.3); Lymphocytes # 1.5 10^3/uL (0.8-4.8); Lymphocytes % 13.3 %; Mean Corpuscular Hemoglobin 25.1 pg (28.0-34.0); Mean Corpuscular Volume 78.3 fl (81-99); Mean Platelet Volume 8.6 fL (7.4-10.4); Monocytes # 1.1 10^3/uL (0.2-0.9); Monocytes % 9.7 %; Neutrophils # 8.19 10^3/uL (1.8-7.7); Nucleated Red Blood Cells % 0 %; Platelet Count 328 10^3/cmm (130-400); Red Blood Count 4.11 10^6/uL (4.1-5.3); Red Cell Distribution Width 16.2 % (12.1-15.1); White Blood Count 11.1 10^3/uL (4.0-10.0)
[2021-08-08 16:08] VITALS: BP 155/81; PULSE 81; RESP 96; O2SAT 96
[2021-08-08 16:18] LABS: Alanine Aminotransferase 14 U/L (0-33); Albumin Level 4.3 g/dL (3.5-5.2); Alkaline Phosphatase 104 IU/L (35-105); Aspartate Amino Transferase 16 U/L (0-32); Blood Urea Nitrogen 20 mg/dL (8-23); Calcium 8.9 mg/dL (8.5-10.5); Carbon Dioxide 23 mmol/L (22-29); Chloride 93 mmol/L (98-107); Creatinine Clr Calc Pharmacy 70.8418; Glucose 144 mg/dL (65-115); Osmolality Calculated 273 mOsm/kg (285-295); Sodium 129 mmol/L (136-145); Total Bilirubin 0.3 mg/dL (0.15-1.2); Total Protein 7.3 g/dL (6.6-8.7)
[2021-08-08 17:30] VITALS: BP 143/86; PULSE 73; RESP 18; O2SAT 97
[2021-08-08] MEDS: HYDROcodone-acetaminophen 5-325 mg Tablet 2 TAB PO (17:35)
== END 2021-08-08 17:50 | disposition home or self-care (01) ==
PROVIDERS: Emergency Provider Emergency Medicine; PCP Family Medicine
DX: R60.0 Localized edema (principal); R10.31 Right lower quadrant pain; Z79.84 Long term (current) use of oral hypoglycemic drugs; Z79.02 Long term (current) use of antithrombotics/antiplatelets; Z79.82 Long term (current) use of aspirin; E11.9 Type 2 diabetes mellitus without complications; I10 Essential (primary) hypertension
CPT/HCPCS: 73502; 80053; 85025; 93971; 96374; 96375; 99284; J2270; J2405

== ENCOUNTER 2025-04-15 04:18 | Inpatient (IN) | payer MEDICARE, OTHER, SELFPAY ==
[2025-04-15] VITALS (20 sets, daily range): BP systolic 127–154; BP diastolic 68–100; PULSE 60–96; RESP 16–22; TEMP 36.3–36.9; O2SAT 91–98; BMI 32.9
--- NOTE | 2025-04-15 04:23 | XRR_ITS ---
PROCEDURE INFORMATION: Exam: XR Chest Exam date and time: 04/15/2025 4:25 AM Age: 79 years old Clinical indication: Shortness of breath; Additional info: SOB TECHNIQUE: Imaging protocol: Radiologic exam of the chest. Views: 1 view. COMPARISON: CT abdomen pelvis con [id number] 09/17/2019 10:30 AM FINDINGS: Lungs: There are left basilar pulmonary parenchymal opacities which could represent infiltrate versus atelectasis. Pleural spaces: Unremarkable. No pleural effusion. No pneumothorax. Heart/Mediastinum: Borderline cardiomegaly. Bones/joints: Severe chronic degenerative changes at each shoulder. XR/XR chest 1V portable [id number] IMPRESSION: Left basilar pulmonary parenchymal opacities which could represent infiltrate versus atelectasis.
--- OUTSIDE RECORDS SUMMARY | 2025-04-15 04:23 | XMS_ITS | Clinical Summary ---
Author Organization [facility] Address [address] [place] [address] Phone Care Team Providers Care Talking Books Library Clerk Name Role Phone Unavailable Primary Care Provider Unavailabl e Encounters Date Type Department Care Team Description 03/25/2025 External Device Data [facility] ABSTRACTION Provider, Abstract 03/11/2025 External Device Data [facility] ABSTRACTION Provider, Abstract 02/11/2025 External Device Data [facility] ABSTRACTION Provider, Abstract 02/04/2025 External Device Data [facility] ABSTRACTION Provider, Abstract 01/22/2025 External Device Data [facility] ABSTRACTION Provider, Abstract from Last 3 Months Social History Tobacco Use Types Packs/Day Years Used Date Smoking Tobacco: Never Assessed Comments Unknown Sex and Gender Information Value Date Recorded Sex Assigned at Not on file Legal Sex Female 1:39 PM CDT Gender Identity Not on file Sexual Orientation Not on file Plan of Treatment Health Maintenance Due Date Last Done Comments DTAP/TDAP/TD VACCINES (1 - Tdap) 1966 PNEUMOCOCCAL VACCINE 50+ YEARS (1 of 1 - PCV) 06/14/18 98 ZOSTER VACCINE (1 of 2) 1997 OSTEOPOROSIS SCREENING 2012 RSV VACCINE (60+ or ) (1 - 1-dose 75+ series) 2022 INFLUENZA VACCINE (#1) 2025
--- NOTE | 2025-04-15 04:25 | ECG_ITS ---
[facility] 2025-04[facility]15 Pat Name: Desire Doll Department: Room: Gender: Female Crime Victim Specialist: : [id number] Requested By: Gurdeep Velazquez Order Number: [id number] Krishnamurthy MD: Eliel Villar M.D. Measurements Intervals [place] Rate: 62 P: 86 OK: 226 QRS: -50 QRSD: 150 T: 38 QT: 455 QTc: 463 Interpretive Statements SINUS RHYTHM WITH FIRST DEGREE AV BLOCK RIGHT BUNDLE BRANCH BLOCK [120+ ms QRS DURATION, UPRIGHT V1, 40+ ms S IN I/aVL/V4/V5/V6] LEFT ANTERIOR FASCICULAR BLOCK [QRS AXIS <= -45, QR IN I, RS IN II] Compared to ECG 09/16/2019 17:51:51 First degree AV block now present Electronically Signed On 04-16-2025 20:33:17 PROFESSIONAL SKATER by Eliel Villar M.D. [email or web address]
--- NOTE | 2025-04-15 04:39 | ED_ITS ---
HPI - SOB/Dyspnea 2 General: Chief Complaint: Shortness of Breath/Dyspnea Stated Complaint: sob Time Seen by Provider: 04/15/25 04:19 Source: patient and EMS Mode of arrival: EMS Limitations: no limitations History of Present Illness: HPI Narrative: 79-year-old female states she has been h aving increasing shortness of breath over the last 2 days. States she has had wheezing along with a slight cough. Patient denies any history of CHF or COPD. Patient did receive Lasix, Solu- Medrol and breathing treatments and route. Patient was hypoxic with EMS she is requiring 2 L here. Does not wear oxygen at home she denies any chest pains or fevers Related Data Home Medications ?Medication ?Instructions ?Recorded ?Confirmed allopurinol 100 mg tablet 100 mg PO DAILY 08/12/1904/29 enalapril maleate 20 mg tablet 20 mg PO BID 08/12/1906/15/24 labetalol 300 mg tablet 300 mg PO BID 08/12/1904/15 meloxicam 15 mg tablet 15 mg PO DAILY 08/12/1904/05 Held on 04/16/25. Instructions: Resume on 05/05/25. Resume after review with primary care provider metformin 1,000 mg tablet 1,000 mg PO BID 08/12/1904/29 sitagliptin phosphate 100 mg tablet 100 mg PO QNOON 04/15/25 levothyroxine 137 mcg tablet 137 mcg PO DAILY 04/15/25 04/15/25 Previous Rx's ?Medication ?Instructions ?Recorded amlodipine 10 mg tablet 10 mg PO DAILY #30 tabs 09/03 09/22 atorvastatin 40 mg tablet 20 mg (1/2 x 40 mg) PO BEDTI ME #30 09/17/19 tabs ferrous sulfate 324 mg (65 mg 324 mg PO DAILY #30 tabs 09/17/19 iron) tablet,delayed release aspirin 81 mg tablet,delayed 81 mg PO DAILY 30 days #3 0 tabs 04/16/25 release azithromycin 500 mg tablet 500 mg PO DAILY 5 days #5 t abs 04/16/25 (Zithromax) budesonide 0.5 mg/2 mL suspension 0.5 mg (2 mL) inhala tion 04/16/25 for nebulization BID.RESPIRATORY 30 days #120 mL cefuroxime axetil 500 mg tablet 500 mg PO BID 5 days # 10 tabs 04/16/25 furosemide 20 mg tablet (Lasix) 20 mg PO DAILY 1 week #7 tabs 04/16/25 ipratropium 0.5 mg-albuterol 3 mg 3 ml inhalation Q4H. RESPIRATORY 30 04/16/25 (2.5 mg base)/3 mL nebulization days #90 mL soln potassium chloride 20 mEq 20 meq PO DAILY 7 days #7 ta bs 04/16/25 tablet,extended release(part/cryst) (Klor-Con M) Allergies Allergy/AdvReac Type Severity Reaction Status Date / Time penicillin G Allergy algy-rash Verified 08/08/21 15:09 Review of Systems 2 Resp: Reports: dyspnea and non-productive cough PFSH ED 2 PFSH: Medical History Hypertension DM2 (diabetes mellitus, type 2) Hypothyroidism Family History Mother Diabetes Father Diabetes Denies family history of CAD (coronary artery disease) Clotting disorder Dementia Hyperlipidemia Psychiatric illness Chronic kidney disease (CKD) Suicide Anesthesia complication Bleeding disorder Family history of premature coronary artery disease Lung disease Cancer Hypertension Stroke Social History Smoking and tobacco/nicotine status: never used tobacco/nicotine Alcohol intake: never Substance/Drug Use: never Current occupational status: retired Physical Exam 2 Const: COMMON NORMALS: patient oriented x3 HENMT: COMMON NORMALS: normocephalic and atraumatic HEAD & SCALP: n ormocephalic and atraumatic Neck/C-Spine: COMMON NORMALS: full ROM and supple Chest: COMMONS NORMALS: normal inspection of the chest Resp: COMMON NORMALS: No retractions and No use of accessory muscles EFFORT & INSPECTION: Yes respiratory distress AUSCULTATION: wheezes Cardio: COMMON NORMALS: regular rate, regular rhythm and No murmurs present (Cardio) RATE: regular rate RHYTHM: regular rhythm Extremity: COMMON NORMALS: normal to inspection and full ROM Neuro: COMMON NORMALS: patient oriented x3, moves all extremities and no focal motor deficits Psych: COMMON NORMALS: mental status grossly normal, Normal thought process present and cooperative THOUGHT PROCESS: Normal thought process present Skin: COMMON NORMALS: no rashes or lesions noted and no wounds GENERAL SKIN EXAM: no rashes or lesions noted Course 2 Vital Signs: Vital signs: Vital Signs Temperature 98.1 F 04/16/25 06:58 Pulse Rate 73 04/16/25 07:45 Respiratory Rate 18 04/16/25 07:34 Blood Pressure 122/66 04/16/25 06:58 Pulse Oximetry 96 04/16/25 07:45 Oxygen Delivery Me thod Room Air 04/16/25 07:45 Oxygen Flow Rate 2 04/16/25 07:34 MDM - SOB/Dyspnea Medical Decision Making Patient presents with shortness of breath differential includes pulmonary embolism, pneumonia, pneumothorax. Did review patient's checks x-ray and interpret myself as likely left basilar infiltrates with pneumonia. Patient had a lots of wheezing here is requiring oxygen here as well. Reviewed labs with no significant abnormalities did interpret EKG showed normal sinus rhythm heart rate [address] elevation QRS 150 QTc 460. I did go over all these findings with patient spoke to hospitalist Dr. Lucas will admit at this time she is hypoxic with pneumonia I did give her IV antibiotics. Medical Records I reviewed the patient's medical records. Lab Data I reviewed the patient's lab results. 04/16/25 09:38 04/16/25 09:38 Labs/Radiology: Radiology Impressions Chest X-Ray 04/15/25 04:23 IMPRESSION: Left basilar pulmonary parenchymal opacities which could represent infiltrate versus atelectasis. Laboratory Results WBC 13.72 10^3/uL (3.29-11.43) H 04/15/25 04:39 RBC 3.81 10^6/uL (3.85-5.65) L 04/15/25 04:39 Hgb 9.90 g/dL (11.27-16.99) L 04/15/25 04:39 Hct 30.8 % (36-47) L 04/15/25 04:39 MCV 80.8 fl (85-98) L 04/15/25 04:39 MCH 26.0 pg (27-33) L 04/15/25 04:39 MCHC 32.1 g/dL (30-55) 04/15/25 04:39 RDW 16.6 % (12.1-15.1) H 04/15/25 04:39 Plt Count 295 10^3/cmm (157-399) 04/15/25 04:39 MPV 8.1 fL (7.4-10.4) 04/15/25 04:39 Neut % (Auto) 65.8 % 04/15/25 04:39 Lymph % (Auto) 14.2 % 04/15/25 04:39 [place] % (Auto) 6.6 % 04/15/25 04:39 Eos % (Auto) 12.4 % 04/15/25 04:39 Baso % (Auto) 0.6 % 04/15/25 04:39 Neut # (Auto) 9.03 10^3/uL (1.8-7.7) H 04/15/25 04:39 Lymph # (Auto) 2.0 10^3/uL (0.8-4.8) 04/15/25 04:39 [place] # (Auto) 0.9 10^3/uL (0.2-0.9) 04/15/25 04:39 Eos # (Auto) 1.7 10^3/uL (0.0-0.8) H 04/15/25 04:39 Baso # (Auto) 0.1 10^3/uL (0.0-0.1) 04/15/25 04:39 Nucleated RBC % (auto) 0 % 04/15/25 04:39 Nucleated RBCs # 0.0 /100WBC 04/15/25 04:39 Specimen Type Arterial 04/15/25 04:50 Sample Site Brachial, right 04/15/25 04:50 ABG pH 7.42 (7.35-7.45) 04/15/25 04:50 ABG pCO2 36.2 mmHg (35-45) 04/15/25 04:50 ABG pO2 58.5 mmHg (80.0-100.0) L 04/15/25 04:50 ABG PO2/FiO2 Ratio 278 04/15/25 04:50 ABG HCO3 23.4 mmol/L (22-26) 04/15/25 04:50 ABG Base Excess -0.8 mmol/L (-2.0-2.0) 04/15/25 04:50 Burton Test Pos 04/15/25 04:50 Hematocrit 29.6 % (37-47) L 04/15/25 04:50 Hgb O2 Saturation 89.6 % (95-100) L 04/15/25 04:50 Carboxyhemoglobin 1.1 %THgb (0.4-20.1) 04/15/25 04:50 Methemoglobin 1.1 % (0.4-1.5) 04/15/25 04:50 Total Hemoglobin 9.6 g/dL (12-16) L 04/15/25 04:50 O2 Delivery Device ra 04/15/25 04:50 FiO2 21.0 % 04/15/25 04:50 Tentmaker ID Bd 04/15/25 04:50 Sodium 130 mmol/L (136-145) L 04/15/25 04:39 Potassium 4.5 mmol/L (3.5-5.1) 04/15/25 04:39 Chloride 95 mmol/L (98-107) L 04/15/25 04:39 Carbon Dioxide 20 mmol/L (22-29) L 04/15/25 04:39 Anion Gap 19.5 (5-19) H 04/15/25 04:39 BUN 18 mg/dL (8-23) 04/15/25 04:39 Creatinine 0.8 mg/dL (0.5-0.9) 04/15/25 04:39 GFR Calculation Not Reportable 04/15/25 04:39 Glucose 154 mg/dL (65-115) H 04/15/25 04:39 Estimat Average Glucose 126 04/15/25 04:39 Hemoglobin A1c 6.0 % (4.0-6.0) 04/15/25 04:39 Calculated Osmolality 275 mOsm/kg (285-295) L 04/15/25 04:39 Lactic Acid 1.9 mmol/L (0.5-2.2) 04/15/25 04:39 Calcium 9.2 mg/dL (8.5-10.5) 04/15/25 04:39 Total Bilirubin 0.3 mg/dL (0.15-1.2) 04/15/25 04:39 AST 17 U/L (0-32) 04/15/25 04:39 ALT 15 U/L (0-33) 04/15/25 04:39 Alkaline Phosphatase 100 U/L (35-105) 04/15/25 04:39 NT-Pro-B Natriuret Pep 721 pg/mL (0-450) H 04/15/25 04:39 NT-Pro-B Natriuret Pep Cancelled 04/15/25 04:39 Total Protein 6.9 g/dL (6.6-8.7) 04/15/25 04:39 Albumin 4.1 g/dL (3.5-5.2) 04/15/25 04:39 Globulin 2.8 g/dL (1.3-4.6) 04/15/25 04:39 Triglycerides 44 mg/dL (0-150) 04/15/25 04:39 Cholesterol 127 mg/dL (0-200) 04/15/25 04:39 LDL Cholesterol, Calc 56 mg/dL (50-129) 04/15/25 04:39 HDL Cholesterol 62 mg/dL (60-100) 04/15/25 04:39 LDL/HDL Ratio 0.90 RATIO (0.00-3.22) 04/15/25 04:39 Cholesterol/HDL Ratio 2.05 mg/dL (0.0-4.40) 04/15/25 04:39 Procalcitonin 0.05 ng/mL (0-0.5) 04/15/25 04:39 TSH 3.99 uIU/mL (0.27-4.20) 04/15/25 04:39 Influenza A (PCR) Negative (Negative) 04/15/25 04:30 Influenza Type B (PCR) Negative (Negative) 04/15/25 04:30 RSV (PCR) Negative (Negative) 04/15/25 04:30 SARS-CoV-2 (PCR) Negative (Negative) 04/15/25 04:30 All radiology interpretation(s) finalized by discharge EKG Data EKG 1: I personally reviewed and interpreted this EKG as follows: EKG Interpretation Date: 04/15/25 EKG interpretation time: : Interpretation: nsr hr [address] elevation qrs 150 qtc 460 Discharge Plan Discharge Patient Disposition: Admitted As Inpatient Admit Provider: Vincent Gutierrez Clinical Impression: Community acquired pneumonia Condition: Stable Discharge Diet: Cardiac and Diabetic Discharge Activity: Resume usual activity Coding Level of Care Code ED Integrated Logistics Programs Director for Chg [place]
[2025-04-15 04:50] LABS: Hematocrit 30.8 % (36-47); Hemoglobin 9.90 g/dL (11.27-16.99); Mean Corpuscular HGB Conc 32.1 g/dL (30-55); Mean Corpuscular Hemoglobin 26.0 pg (27-33); Mean Corpuscular Volume 80.8 fl (85-98); Nucleated Red Blood Cells % 0 %; Platelet Count 295 10^3/cmm (157-399); Red Blood Count 3.81 10^6/uL (3.85-5.65); White Blood Count 13.72 10^3/uL (3.29-11.43)
[2025-04-15 05:00] LABS: ABG PCO2 36.2 mmHg (35-45); ABG PH Result 7.42 (7.35-7.45); Arterial Blood Gas Hematocrit 29.6 % (37-47); Blood Gas Allen Test Pos; Blood Gas Operator Identificat BD; Blood Gas Sample Site Brachial, right; Blood Gas Sample Type Arterial; Carboxyhemoglobin 1.1 %THgb (0.4-20.1); HCO3 ABG 23.4 mmol/L (22-26); Methemoglobin 1.1 % (0.4-1.5); PO2 ABG 58.5 mmHg (80.0-100.0); PO2 FiO2 Ratio Arterial Blood 278
[2025-04-15 05:10] LABS: Alanine Aminotransferase 15 U/L (0-33); Albumin Level 4.1 g/dL (3.5-5.2); Alkaline Phosphatase 100 U/L (35-105); Anion Gap 19.5 (5-19); Aspartate Amino Transferase 17 U/L (0-32); Blood Urea Nitrogen 18 mg/dL (8-23); Calcium 9.2 mg/dL (8.5-10.5); Carbon Dioxide 20 mmol/L (22-29); Chloride 95 mmol/L (98-107); Globulin 2.8 g/dL (1.3-4.6); Glucose 154 mg/dL (65-115); NT Pro B Type Natriuretic Pept 721 pg/mL (0-450); Osmolality Calculated 275 mOsm/kg (285-295); Potassium 4.5 mmol/L (3.5-5.1); Sodium 130 mmol/L (136-145); Total Protein 6.9 g/dL (6.6-8.7)
[2025-04-15 05:17] LABS: Respiratory Syncytial Virus Ce NEGATIVE (Negative); SARS-CoV-2 PCR NEGATIVE (Negative)
[2025-04-15 05:43] LABS: Slide Review Slide Review Perform
[2025-04-15] MEDS: cefTRIAXone 1,000 mg SDV 1000 MG IVP (05:43)
--- NOTE | 2025-04-15 05:59 | PM.HP ---
Providers/Chief Complaint Admitting Physician: Vincent Gutierrez MD Primary Care Provider: Lars Day Chief Complaint: sob History of Present Illness Desire Doll is a 79 year old female with a past medical history of TIA, hypothyroidism, hypertension, who presents to [facility] for complaints of shortness of breath, productive cough, bilateral lower extremity edema. She denies a history of smoking, no history of COPD, no history of CHF, history of chest pain, no history of cardiac stenting, no recent travel, no sick contacts but she does report increased shortness of breath, does report a productive cough, does report wheezing, she does not use oxygen at home, denies any calf pain, no calf swelling, no hemoptysis Review of Systems Const: Denies: fever(s) or chills Card: Denies: chest pain Resp: Reports: dyspnea Medications/Allergies Home Medications ?Medication ?Instructions ?Recorded ?Confirmed ?Last Taken ?Type allopurinol 100 mg tablet 100 ea PO DAILY 08/12/19 09/30/19 09/16/19 History enalapril maleate 20 mg tablet 20 mg PO BID 08/12/19 09/30/19 09/16/19 History labetalol 300 mg tablet 300 mg PO BID 08/12/19 09/30/19 09/16/19 History levothyroxine 150 mcg tablet 150 mcg PO DAILY 08/12/19 09/30/19 09/16/19 History meloxicam 15 mg tablet 15 mg PO DAILY 08/12/19 09/30/19 09/16/19 History metformin 1,000 mg tablet See Rx Instructions .Route .COMPLEX 08/12/19 09/30/19 09/16/19 History sitagliptin phosphate 100 mg tablet 100 mg PO DAILY 08/12/19 09/30/19 09/16/19 History hydrochlorothiazide 12.5 mg capsule 90 mg PO DAILY 09/16/19 09/30/19 09/16/19 History amlodipine 10 mg tablet 10 mg PO DAILY #30 tabs 09/17/19 09/30/19 Unknown Rx aspirin 81 mg tablet,delayed 81 mg PO DAILY #30 tabs 09/17/19 09/30/19 Unknown Rx release atorvastatin 40 mg tablet 20 mg (1/2 x 40 mg) PO BEDTIME #30 09/17/19 09/30/19 Unknown Rx tabs clopidogrel 75 mg tablet 75 mg PO DAILY #30 tabs 09/17/19 09/30/19 Unknown Rx ferrous sulfate 324 mg (65 mg 324 mg PO DAILY #30 tabs 09/17/19 09/30/19 Unknown Rx iron) tablet,delayed release hydrocodone 5 mg-acetaminophen 325 1 tab PO Q6H PRN pain #14 tabs 08/08/21 Unknown Rx mg tablet naproxen 500 mg tablet (Naprosyn) 500 mg PO BID PRN pain #20 tabs 08/08/21 Unknown Rx Allergies Allergy/AdvReac Type Severity Reaction Status Date / Time penicillin G Allergy algy-rash Verified 08/08/21 15:09 PFSH Acute PFSH: Medical History Hypertension DM2 (diabetes mellitus, type 2) Hypothyroidism Family History Mother Diabetes Father Diabetes Denies family history of CAD (coronary artery disease) Clotting disorder Dementia Hyperlipidemia Psychiatric illness Chronic kidney disease (CKD) Suicide Anesthesia complication Bleeding disorder Family history of premature coronary artery disease Lung disease Cancer Hypertension Stroke Social History Smoking and tobacco/nicotine status: never used tobacco/nicotine Alcohol intake: never Substance/Drug Use: never Current occupational status: retired Vitals/I&O/Wt Last Vital Signs Temp 97.4 F L 04/15/25 04:18 Pulse 68 04/15/25 05:30 Resp 17 04/15/25 05:30 BP 137/68 04/15/25 05:30 Pulse Ox 96 04/15/25 05:30 O2 Del Method Room Air 04/15/25 05:01 O2 Flow Rate 2 04/15/25 04:27 Weight last 48 hrs Weight 88.451 kg Physical Exam Const: COMMON NORMALS: no acute distress and patient oriented x3 HENMT: COMMON NORMALS: normocephalic HEAD & SCALP: normocephalic Neck/C-Spine: COMMON NORMALS: no JVD Resp: COMMON NORMALS: normal respiratory effort, No retractions and No use of accessory muscles OTHER: Crackles in using in all lung hernandez Cardio: COMMON NORMALS: no JVD, regular rate, regular rhythm, S1 normal heart sound present and S2 normal heart sound present RATE: regular rate RHYTHM: regular rhythm HEART SOUNDS: S1 normal heart sound present and S2 normal heart sound present GI: COMMON NORMALS: Normal to inspection, nondistended, normoactive bowel sounds present, Soft to palpation and non-tender Extremity: COMMON NORMALS: no calf tenderness NARRATIVE EXTREMITY EXAM: 1+ edema Neuro: COMMON NORMALS: patient oriented x3, CN's II-XII intact bilaterally and moves all extremities Psych: COMMON NORMALS: mental status grossly normal Data 04/15/25 04:39 04/15/25 04:39 A&P Assessment and plan 1. Acute hypoxic respiratory failure: Plan: Acute hypoxic respiratory failure - Secondary to pneumonia - Concerns for CHF? Plan - Sputum culture - Blood culture - Rocephin - Azithromycin - Received steroids/Lasix in the ambulance - Ordered BMP, troponin series - Based on clinical progress we will further dose of Lasix therapy - Full code - Lovenox for DVT prophylaxis Acute on chronic anemia, monitor Hypothyroid continue levothyroxine Type 2 diabetes mellitus, low-dose sliding scale Acute on chronic hyponatremia - Component related to hyperglycemia - Monitor History of TIA continue aspirin, statin -Patient is on Plavix? Will need to do medication reconciliation in the morning. No history of stenting, no history of coronary artery disease no history of PAD -Hypertension new resume amlodipine - Will need to reconcile enalapril, labetalol Full code Lovenox for DVT prophylaxis PDMP PDMP Reviewed: Not Reviewed Attestations Medical Necessity Statement*: Patient requires hospitalization, inpatient, greater than 2 midnights, for acute hypoxic respiratory failure secondary to pneumonia Diagnoses Acute hypoxic respiratory failure J96.01
[2025-04-15 06:25] LABS: Lactic Sepsis W/Reflex 1.9 mmol/L (0.5-2.2)
[2025-04-15 06:32] LABS: Estmated Average Glucose 126; Hemoglobin A1C 6.0 % (4.0-6.0)
[2025-04-15] MEDS: pantoprazole 40 mg SDV IVP (06:32)
[2025-04-15 06:36] LABS: Procalcitonin 0.05 ng/mL (0-0.5); Thyroid Stimulating Hormone 3.99 uIU/mL (0.27-4.20)
[2025-04-15 06:48] LABS: Cholesterol 127 mg/dL (0-200); HDL Cholesterol 62 mg/dL (60-100); Triglycerides 44 mg/dL (0-150)
--- NOTE | 2025-04-15 08:00 | P.PN_ITS ---
Subjective 2 Subjective: Patient is a very pleasant 79-year-old female seen and examined at bedside on hospital rounds today. Patient sitting up in bed with continued shortness of breath, nasal congestion, nonproductive cough. Patient states that she does not have any new or worsening symptoms, she is not on oxygen dependent at home. Reassured the patient that we would continue current interventions and work towards weaning her off her oxygen and if we are unable to that we will set her up with home oxygen. Vital signs remained stable, continues oxygen supplementation 2L/min via n/c. Vitals/I&O/Wt Last Vital Signs Temp 97.7 F 04/15/25 06:10 Pulse 78 04/15/25 07:16 Resp 18 04/15/25 07:11 BP 143/100 04/15/25 06:10 Pulse Ox 94 04/15/25 07:11 O2 Del Method Nasal Cannula 04/15/25 07:11 O2 Flow Rate 2 04/15/25 07:11 04/14/25 04/15/25 04/15/25 22:59 06:59 14:59 Intake Total 250 / 250 Balance 250 / 250 Weight last 48 hrs Weight 88.451 kg Weight 88.451 kg Physical Exam 2 Const: COMMON NORMALS: no acute distress and patient oriented x3 HENMT: COMMON NORMALS: normocephalic HEAD & SCALP: normocephalic Neck/C-Spine: COMMON NORMALS: no JVD Resp: COMMON NORMALS: normal respiratory effort, No retractions and No use of accessory muscles OTHER: Coarse bilaterally to auscultation, diminished at the bases Cardio: COMMON NORMALS: no JVD, regular rate, regular rhythm, S1 normal heart sound present and S2 normal heart sound present RATE: regular rate RHYTHM: regular rhythm HEART SOUNDS: S1 normal heart sound present and S2 normal heart sound present GI: COMMON NORMALS: Normal to inspection, nondistended, normoactive bowel sounds present, Soft to palpation and non-tender PALPATION: Yes Soft to palpation Extremity: COMMON NORMALS: no calf tenderness NARRATIVE EXTREMITY EXAM: 1+ edema Neuro: COMMON NORMALS: patient oriented x3, CN's II-XII intact bilaterally and moves all extremities Psych: COMMON NORMALS: mental status grossly normal Data 04/15/25 04:39 04/15/25 04:39 A&P PDMP PDMP Reviewed: Not Reviewed Attestations 2 Medical Necessity Statement*: Patient requires hospitalization, inpatient, greater than 2 midnights, for acute hypoxic respiratory failure secondary to pneumonia Coding Level of Care Code Acute Code for Chg Fwd
[2025-04-15] MEDS: HYDROcodone-acetaminophen 5-325 mg Tablet 1 TAB PO (11:52)
--- NOTE | 2025-04-15 13:48 | USCV_ITS ---
Lavon, Desire Age: 79 Gender: F : 1945 Exam Date: 04/15/2025 14:35 Ordering Phys: Jyoti Maria NP Technologist: BINTA Exam Location: [facility] [place] Indication: Fluid overload. CHF BP: 135 / 87 HR: 85 Rhythm: Sinus Technical Quality: Adequate MEASUREMENTS (Male / Female) Normal Values 2D ECHO LV Diastolic Diameter PLAX 5.9 cm 4.2 - 5.9 / 3.9 - 5.3 cm IVS Diastolic Thickness 0.8 cm 0.6 - 1.0 / 0.6 - 0.9 cm IVS Systolic Thickness 1.0 cm LVPW Diastolic Thickness 0.9 cm 0.6 - 1.0 / 0.6 - 0.9 cm LVPW Systolic Thickness 1.0 cm LVOT Diameter 2.0 cm LV Ejection Fraction 2D Teich 35.1 % LV Ejection Fraction MOD 4C 60.0 % LV Ejection Fraction MOD 2C 44.4 % LV Ejection Fraction 2C AL 45.8 % LA Diameter 3.0 cm RA Systolic Volume 4C AL 91.8 ml RA Systolic Volume 4C MOD 89.3 ml LA Sys Volume AL 72.8 cm cubed LA Sys Volume Index AL 35.8 cm cubed/m squared Aorta at Sinotubular Diameter 2.4 cm IVC Diameter 1.5 cm M-MODE LA Ao Ratio MM 1.2 AV Cusp Separation MM 1.7 cm DOPPLER AV Peak Velocity 183.0 cm/s LVOT Peak Velocity 96.0 cm/s AV Area Cont Eq vti 2.3 cm squared AV Area Cont Eq pk 1.7 cm squared MV Peak Velocity 144.0 cm/s MV Area PHT 6.7 cm squared Mitral E to A Ratio 0.8 TR Peak Velocity 111.0 cm/s TR Peak Gradient 4.9 mmHg TV Peak E Velocity 79.0 cm/s PV Peak Velocity 107.0 cm/s FINDINGS Left Ventricle Normal left ventricular size, global systolic function and wall thickness. Left ventricular ejection fraction is 60%. Segmental wall motion cannot be accurately assessed due to technically difficult images. Normal left ventricular diastolic function. Indetermnate diastolic function due to lack of TR jet. Right Ventricle Normal right ventricular size and systolic function. RVSP could not be calculated due to incomplete tricuspid regurgitation velocity profile. Right Atrium Normal right atrial size. Left Atrium Mild left atrial enlargement. IA Septum Normal appearance of the interatrial septum. Mitral Valve Moderate mitral annular calcification. Mild mitral valve stenosis. Mitral valve mean gradient is 4.2 mmHg at a heart rate of 85 bpm. Aortic Valve Normal aortic valve structure. No aortic valve stenosis or regurgitation. Tricuspid Valve Normal tricuspid valve structure. No tricuspid valve stenosis or regurgitation Pulmonic Valve Normal pulmonic valve structure. No pulmonic valve stenosis or regurgitation. Pericardium No pericardial effusion. Aorta Normal diameter of the aortic root and ascending thoracic aorta. IVC Normal IVC diameter. CONCLUSIONS Normal left ventricular size, systolic function and wall thickness with ejection fraction of 60%. Normal right ventricular size and systolic function. Moderate mitral annular calcification. Mild mitral valve stenosis. Mitral valve mean gradient is 4.2 mmHg at a heart rate of 85 bpm. Eliel Villar MD, FACC (Electronically Signed) Final Date: 15 April 2025 21:31 S
[2025-04-15] MEDS: FUROsemide 10 mg/mL SDV 4mL 40 MG IVP (17:50)
[2025-04-15] MEDS: fluticasone nasal spray 16gm Btl 1 SPRAY NASAL (17:50)
[2025-04-16] VITALS (8 sets, daily range): BP systolic 122–142; BP diastolic 66–86; PULSE 72–99; RESP 17–22; TEMP 36.7–36.9; O2SAT 95–98
[2025-04-16] MEDS: FUROsemide 10 mg/mL SDV 4mL 40 MG IVP (04:33)
[2025-04-16] MEDS: fluticasone nasal spray 16gm Btl 1 SPRAY NASAL (04:34)
[2025-04-16] MEDS: ferrous sulfate EC 325 mg Tablet PO (04:34)
[2025-04-16] MEDS: pantoprazole 40 mg SDV IVP (05:54)
[2025-04-16] MEDS: cefTRIAXone 1,000 mg SDV 1000 MG IVP (05:55)
--- NOTE | 2025-04-16 09:21 | PM.DCS ---
Discharge Providers Date of Admission: 04/15/25 05:29 Date of Discharge: April 16, 2025 Attending Provider at Admission: Vincent Gutierrez MD Attending Provider at Discharge: Jyoti Maria NP Primary Care Provider: Lars Day Diagnoses at Discharge Discharge Diagnosis 1. Acute hypoxic respiratory failure: Reason for Visit Reason for Visit: sob Brief History: Admission: Desire Doll is a 79 year old female with a past medical history of TIA, hypothyroidism, hypertension, who presents to [facility] for complaints of shortness of breath, productive cough, bilateral lower extremity edema. She denies a history of smoking, no history of COPD, no history of CHF, history of chest pain, no history of cardiac stenting, no recent travel, no sick contacts but she does report increased shortness of breath, does report a productive cough, does report wheezing, she does not use oxygen at home, denies any calf pain, no calf swelling, no hemoptysis. Hospital Course Hospital Course Interventions: Acute hypoxic respiratory failure: Secondary to pneumonia - Sputum culture - Blood culture - Rocephin - Azithromycin - Continue to diurese with lasix, supplement potassium - Supplemental oxygen - Supportive measures with nebulizer, incentive spirometer Acute on chronic anemia - Hemoglobin 9.90, hematocrit 30.8 - Transfuse for hemoglobin less than 7.0, monitor Hypothyroid - continue levothyroxine Type 2 diabetes mellitus - low-dose sliding scale, POC Acute on chronic hyponatremia, resolved - Monitor History of TIA CAD - continue Cardioprotective medications aspirin, statin Hypertension - Continue amlodipine 10 mg daily, labetalol, lisinopril Patient was able to wean off of oxygen, room air saturation greater than 95%. Had complete resolution of dyspnea. Chronic hyponatremia, recommend fluid restrictions at discharge, continued outpatient management with primary care provider and referral to cardiology. Echo completed with normal left ventricular size, systolic function and wall thickness with ejection fraction of 60%. Patient will continue diuresing with oral Lasix x 7 days at which time she will have followed up with her primary care provider for continued outpatient management. Patient discharge is in stable condition, all questions and concerns addressed to the patient prior to discharge. Physical Exam Const: COMMON NORMALS: no acute distress and patient oriented x3 HENMT: COMMON NORMALS: normocephalic HEAD & SCALP: normocephalic Neck/C-Spine: COMMON NORMALS: no JVD Resp: COMMON NORMALS: normal respiratory effort, No retractions and No use of accessory muscles OTHER: Clear to auscultation Cardio: COMMON NORMALS: no JVD, regular rate, regular rhythm, S1 normal heart sound present and S2 normal heart sound present RATE: regular rate RHYTHM: regular rhythm HEART SOUNDS: S1 normal heart sound present and S2 normal heart sound present GI: COMMON NORMALS: Normal to inspection, nondistended, normoactive bowel sounds present, Soft to palpation and non-tender PALPATION: Yes Soft to palpation Extremity: COMMON NORMALS: no calf tenderness NARRATIVE EXTREMITY EXAM: No edema Neuro: COMMON NORMALS: patient oriented x3, CN's II-XII intact bilaterally and moves all extremities Psych: COMMON NORMALS: mental status grossly normal Discharge Data Studies Completed and Pending Completed Studies During Hospitalization Category Date Time Status XR chest 1V portable [id number] Stat Exams 04/15/25 04:23 Completed CV. echo complete* [id number] Routine Ultrasound 04/15/25 13:48 Completed Pending at discharge Category Date Time Status Blood Culture Stat Lab 04/15/25 05:38 Received CBC Auto Diff [Complete Blood Count w/Auto] Routine Lab 04/16/25 07:42 Ordered CMP [Comprehensive Metabolic Panel] Routine Lab 04/16/25 07:42 Ordered Sputum Culture and Gram Stain Stat Lab 04/15/25 06:00 Results Radiology Impressions Chest X-Ray 04/15/25 04:23 IMPRESSION: Left basilar pulmonary parenchymal opacities which could represent infiltrate versus atelectasis. Laboratory Results WBC 13.72 10^3/uL (3.29-11.43) H 04/15/25 04:39 RBC 3.81 10^6/uL (3.85-5.65) L 04/15/25 04:39 Hgb 9.90 g/dL (11.27-16.99) L 04/15/25 04:39 Hct 30.8 % (36-47) L 04/15/25 04:39 MCV 80.8 fl (85-98) L 04/15/25 04:39 MCH 26.0 pg (27-33) L 04/15/25 04:39 MCHC 32.1 g/dL (30-55) 04/15/25 04:39 RDW 16.6 % (12.1-15.1) H 04/15/25 04:39 Plt Count 295 10^3/cmm (157-399) 04/15/25 04:39 MPV 8.1 fL (7.4-10.4) 04/15/25 04:39 Neut % (Auto) 65.8 % 04/15/25 04:39 Lymph % (Auto) 14.2 % 04/15/25 04:39 [place] % (Auto) 6.6 % 04/15/25 04:39 Eos % (Auto) 12.4 % 04/15/25 04:39 Baso % (Auto) 0.6 % 04/15/25 04:39 Neut # (Auto) 9.03 10^3/uL (1.8-7.7) H 04/15/25 04:39 Lymph # (Auto) 2.0 10^3/uL (0.8-4.8) 04/15/25 04:39 [place] # (Auto) 0.9 10^3/uL (0.2-0.9) 04/15/25 04:39 Eos # (Auto) 1.7 10^3/uL (0.0-0.8) H 04/15/25 04:39 Baso # (Auto) 0.1 10^3/uL (0.0-0.1) 04/15/25 04:39 Nucleated RBC % (auto) 0 % 04/15/25 04:39 Nucleated RBCs # 0.0 /100WBC 04/15/25 04:39 Specimen Type Arterial 04/15/25 04:50 Sample Site Brachial, right 04/15/25 04:50 ABG pH 7.42 (7.35-7.45) 04/15/25 04:50 ABG pCO2 36.2 mmHg (35-45) 04/15/25 04:50 ABG pO2 58.5 mmHg (80.0-100.0) L 04/15/25 04:50 ABG PO2/FiO2 Ratio 278 04/15/25 04:50 ABG HCO3 23.4 mmol/L (22-26) 04/15/25 04:50 ABG Base Excess -0.8 mmol/L (-2.0-2.0) 04/15/25 04:50 [place] Test Pos 04/15/25 04:50 Hematocrit 29.6 % (37-47) L 04/15/25 04:50 Hgb O2 Saturation 89.6 % (95-100) L 04/15/25 04:50 Carboxyhemoglobin 1.1 %THgb (0.4-20.1) 04/15/25 04:50 Methemoglobin 1.1 % (0.4-1.5) 04/15/25 04:50 Total Hemoglobin 9.6 g/dL (12-16) L 04/15/25 04:50 O2 Delivery Device ra 04/15/25 04:50 FiO2 21.0 % 04/15/25 04:50 Tape Deck Installer ID Bd 04/15/25 04:50 Sodium 130 mmol/L (136-145) L 04/15/25 04:39 Potassium 4.5 mmol/L (3.5-5.1) 04/15/25 04:39 Chloride 95 mmol/L (98-107) L 04/15/25 04:39 Carbon Dioxide 20 mmol/L (22-29) L 04/15/25 04:39 Anion Gap 19.5 (5-19) H 04/15/25 04:39 BUN 18 mg/dL (8-23) 04/15/25 04:39 Creatinine 0.8 mg/dL (0.5-0.9) 04/15/25 04:39 GFR Calculation Not Reportable 04/15/25 04:39 Glucose 154 mg/dL (65-115) H 04/15/25 04:39 POC Glucose 227 mg/dL (70-110) H 04/16/25 06:20 Estimat Average Glucose 126 04/15/25 04:39 Hemoglobin A1c 6.0 % (4.0-6.0) 04/15/25 04:39 Calculated Osmolality 275 mOsm/kg (285-295) L 04/15/25 04:39 Lactic Acid 1.9 mmol/L (0.5-2.2) 04/15/25 04:39 Calcium 9.2 mg/dL (8.5-10.5) 04/15/25 04:39 Total Bilirubin 0.3 mg/dL (0.15-1.2) 04/15/25 04:39 AST 17 U/L (0-32) 04/15/25 04:39 ALT 15 U/L (0-33) 04/15/25 04:39 Alkaline Phosphatase 100 U/L (35-105) 04/15/25 04:39 NT-Pro-B Natriuret Pep 721 pg/mL (0-450) H 04/15/25 04:39 NT-Pro-B Natriuret Pep Cancelled 04/15/25 04:39 Total Protein 6.9 g/dL (6.6-8.7) 04/15/25 04:39 Albumin 4.1 g/dL (3.5-5.2) 04/15/25 04:39 Globulin 2.8 g/dL (1.3-4.6) 04/15/25 04:39 Triglycerides 44 mg/dL (0-150) 04/15/25 04:39 Cholesterol 127 mg/dL (0-200) 04/15/25 04:39 LDL Cholesterol, Calc 56 mg/dL (50-129) 04/15/25 04:39 HDL Cholesterol 62 mg/dL (60-100) 04/15/25 04:39 LDL/HDL Ratio 0.90 RATIO (0.00-3.22) 04/15/25 04:39 Cholesterol/HDL Ratio 2.05 mg/dL (0.0-4.40) 04/15/25 04:39 Procalcitonin 0.05 ng/mL (0-0.5) 04/15/25 04:39 TSH 3.99 uIU/mL (0.27-4.20) 04/15/25 04:39 Influenza A (PCR) Negative (Negative) 04/15/25 04:30 Influenza Type B (PCR) Negative (Negative) 04/15/25 04:30 RSV (PCR) Negative (Negative) 04/15/25 04:30 SARS-CoV-2 (PCR) Negative (Negative) 04/15/25 04:30 Vitals Last Vital Signs Temp 98.1 F 04/16/25 06:58 Pulse 73 04/16/25 07:45 Resp 18 04/16/25 07:34 BP 122/66 04/16/25 06:58 Pulse Ox 96 04/16/25 07:45 O2 Del Method Room Air 04/16/25 07:45 O2 Flow Rate 2 04/16/25 07:34 Discharge Plan Discharge Patient Disposition: Home Condition: Stable Prescriptions: New aspirin 81 mg Tablet,Delayed Release (Dr/Ec) 81 mg PO DAILY 30 Days Qty: 30 0RF budesonide 0.5 mg/2 mL Suspension For Nebulization 0.5 mg inhalation BID.RESPIRATORY 30 Days Qty: 120 0RF furosemide [Lasix] 20 mg tablet 20 mg PO DAILY 7 Days Qty: 7 0RF ipratropium-albuterol 0.5 mg-3 mg(2.5 mg base)/3 mL Solution For Nebulization 3 ml inhalation Q4H.RESPIRATORY 30 Days Qty: 90 0RF potassium chloride [Klor-Con M20] 20 mEq Tablet,Er Particles/Crystals 20 meq PO DAILY 7 Days Qty: 7 0RF azithromycin [Zithromax] 500 mg tablet 500 mg PO DAILY 5 Days Qty: 5 0RF cefuroxime axetil 500 mg tablet 500 mg PO BID 5 Days Qty: 10 0RF Continued sitagliptin phosphate 100 mg tablet 100 mg PO QNOON metformin 1,000 mg tablet 1,000 mg PO BID allopurinol 100 mg tablet 100 mg PO DAILY labetalol 300 mg tablet 300 mg PO BID enalapril maleate 20 mg tablet 20 mg PO BID atorvastatin 40 mg Tablet 20 mg PO BEDTIME Qty: 30 0RF amlodipine 10 mg Tablet 10 mg PO DAILY Qty: 30 0RF ferrous sulfate 324 mg (65 mg iron) tablet,delayed release (DR/EC) 324 mg PO DAILY Qty: 30 0RF levothyroxine 137 mcg Tablet 137 mcg PO DAILY Held meloxicam 15 mg tablet 15 mg PO DAILY Hold Instructions: Resume on 05/05/25. Resume after review with primary care provider Discharge Order = DC NOW: Discharge Order (Routine); Ordered 04/16/25 Ordered By: Jyoti Maria Referrals: Lars Day [Primary Care Provider, Family Practice] - 1-3 days [facility] [Outside] - 7-10 days Referral Note: Will need f/u with hydrologist of choice. Discharge Diet: Cardiac and Diabetic Discharge Activity: Resume usual activity Patient Instructions: Furosemide (By mouth), Azithromycin (By mouth), Hypoxia (GEN), Opioid Safety, Patient Portal & [facility] Instructions Discharge Attestations Time Spent in Discharge Care*: greater than 30 min Specific Discharge Activities: educating patient, discussing with correctional case manager/social workers/dc planners and documenting/other paperwork Status at Discharge: Cognitive status at discharge: cognitively intact, Behavioral status at discharge: cooperative, Quality Metrics Clinical Quality Measures [ No reported AMI, CVA or VTE this stay] Coding Level of Care Code 82451 Diagnoses Acute hypoxic respiratory failure J96.01
[2025-04-16 09:55] LABS: Hematocrit 28.3 % (36-47); Hemoglobin 9.40 g/dL (11.27-16.99); Mean Corpuscular HGB Conc 33.2 g/dL (30-55); Mean Corpuscular Hemoglobin 26.2 pg (27-33); Mean Corpuscular Volume 78.8 fl (85-98); Nucleated Red Blood Cells % 0 %; Platelet Count 285 10^3/cmm (157-399); Red Blood Count 3.59 10^6/uL (3.85-5.65); White Blood Count 9.32 10^3/uL (3.29-11.43)
[2025-04-16 10:10] LABS: Slide Review Slide Review Perform
[2025-04-16 10:15] LABS: Alanine Aminotransferase 15 U/L (0-33); Albumin Level 3.8 g/dL (3.5-5.2); Alkaline Phosphatase 85 U/L (35-105); Anion Gap 18.5 (5-19); Aspartate Amino Transferase 17 U/L (0-32); Blood Urea Nitrogen 23 mg/dL (8-23); Calcium 8.7 mg/dL (8.5-10.5); Carbon Dioxide 22 mmol/L (22-29); Chloride 92 mmol/L (98-107); Creatinine Clr Calc Pharmacy 51.9637; Globulin 2.6 g/dL (1.3-4.6); Glucose 239 mg/dL (65-115); Osmolality Calculated 279 mOsm/kg (285-295); Potassium 3.5 mmol/L (3.5-5.1); Sodium 129 mmol/L (136-145); Total Protein 6.4 g/dL (6.6-8.7)
== END 2025-04-16 12:53 | disposition critical access hospital (66) | DRG 193 ==
LOC: ER 04:41 → MEDSURG 05:45
PROVIDERS: Admitting Provider Family Medicine; Emergency Provider Emergency Medicine; PCP Family Medicine; Visit Provider Registered Nurse
DX: J18.9 Pneumonia, unspecified organism (principal); J96.01 Acute respiratory failure with hypoxia; E87.1 Hypo-osmolality and hyponatremia; E03.9 Hypothyroidism, unspecified; I10 Essential (primary) hypertension; D64.9 Anemia, unspecified; E11.9 Type 2 diabetes mellitus without complications; Z79.82 Long term (current) use of aspirin; Z79.84 Long term (current) use of oral hypoglycemic drugs; Z86.73 Personal history of transient ischemic attack (TIA), and cerebral infarction without residual deficits
CPT/HCPCS: 36415; 36416; 36600; 71045; 80053; 80061; 82805; 82962; 83036; 83605; 83880; 84145; 84443; 85025; 87040; 87070; 87205; 87637; 93005; 93306; 94640; 94664; 96365; 96372; 96375; 99285; J0456; J0696; J1650; J1815; J1938; J2470; J7050; J7613; J7626; J9999